=== PATIENT | female | born 1980 | race Caucasian/White ===

== ENCOUNTER → 2020-12-11 11:00 | Outpatient (BNVA) | payer BC, SELFPAY | PROVIDERS: Family Provider Nurse Practitioner Family; PCP Nurse Practitioner Family; Visit Provider Family Medicine | DX: F41.9 Anxiety disorder, unspecified (principal); R25.2 Cramp and spasm; L40.9 Psoriasis, unspecified; L72.11 Pilar cyst | CPT/HCPCS: 80053; 83735; 84443 ==

== ENCOUNTER → 2021-09-16 08:53 | Outpatient (BNVA) | payer BC, SELFPAY | PROVIDERS: Family Provider Nurse Practitioner Family; PCP Nurse Practitioner Family; Visit Provider Nurse Practitioner Family | DX: I10 Essential (primary) hypertension (principal); Z79.899 Other long term (current) drug therapy; G89.29 Other chronic pain; M25.50 Pain in unspecified joint; E55.9 Vitamin D deficiency, unspecified; Z13.6 Encounter for screening for cardiovascular disorders | CPT/HCPCS: 80053; 80061; 81003; 82306; 83036; 84443; 85025; 86160; 86162; 86200; 86235; 86255; 86376; 86431; 87077; 87086; 87184 ==

== ENCOUNTER → 2022-02-25 08:59 | Outpatient (BNVA) | payer MEDICAID, SELFPAY | PROVIDERS: Family Provider Nurse Practitioner Family; PCP Family Medicine; Visit Provider Anesthesiology Pain Medicine | DX: M50.90 Cervical disc disorder, unspecified, unspecified cervical region (principal); M54.12 Radiculopathy, cervical region; M25.512 Pain in left shoulder; Z98.1 Arthrodesis status; F17.210 Nicotine dependence, cigarettes, uncomplicated | CPT/HCPCS: 20553; 99213; 99214; J1030 ==

== ENCOUNTER 2022-05-14 13:01 | Outpatient (CLI) | payer MEDICAID, SELFPAY ==
--- NOTE | 2022-05-14 13:30 | CT_ITS ---
WS: [id number] CT CERVICAL SPINE TECHNIQUE: Noncontrast CT of the cervical spine with coronal and sagittal reformatted images. CLINICAL INFORMATION: M54.12 - Radiculopathy, cervical region COMPARISON: None. DLP: 566.[address] scans at [facility] use at least one of these dose optimization techniques: automated e xposure control; mA and/or kV adjustment per patient size (includes targeted exams where dose is matc hed to clinical indication); or iterative reconstruction. FINDINGS: Straightening of the normal cervical lordosis. Postoperative changes ACDF C5-C7 with interbody fusion graft. No evidence of hardware loosening. C2-C3: Normal. C3-C4: Normal. C4-C5: No significant disc bulging. Mild facet arthropathy. Spinal canal and foramen are patent. C5-C6: Postoperative changes ACDF. Foramen are patent. Spinal canal is patent. C6-C7: Postoperative changes ACDF. Spinal canal and foramen are patent. C7-T1: Postoperative changes interbody fusion C6-C7. Spinal canal and foramen are patent. Visualized posterior nasopharynx: Normal. Prevertebral soft tissues: Normal. CT/CT cervical spin wo con* [id number] IMPRESSION: 1. Straightening of the normal cervical lordosis. ACDF C5-C7. No evidence of h ardware loosening. 2. No significant central canal or foraminal stenosis 3. Mild facet arthropathy C4-C5 and C5-C6.
== END 2022-05-14 13:02 | disposition home or self-care (01) ==
LOC: RAD 13:02
PROVIDERS: Absent Provider Anesthesiology Pain Medicine; PCP Family Medicine; Visit Provider Family Medicine
DX: M54.12 Radiculopathy, cervical region (principal)
CPT/HCPCS: 72125

== ENCOUNTER → 2022-05-15 11:14 | Outpatient (BNVA) | payer MEDICAID, SELFPAY | PROVIDERS: PCP Family Medicine; Visit Provider Anesthesiology Pain Medicine | DX: M54.50 Low back pain, unspecified (principal); G89.29 Other chronic pain | CPT/HCPCS: 72110 ==

== ENCOUNTER → 2022-06-20 09:35 | Outpatient (BNVA) | payer MEDICAID, SELFPAY | PROVIDERS: PCP Family Medicine; Visit Provider Nurse Practitioner | DX: R10.9 Unspecified abdominal pain (principal); R07.81 Pleurodynia | CPT/HCPCS: 81000 ==

== ENCOUNTER → 2022-09-08 11:28 | Outpatient (BNVA) | payer MEDICAID, SELFPAY | PROVIDERS: PCP Family Medicine; Visit Provider Nurse Practitioner | DX: R10.2 Pelvic and perineal pain (principal) | CPT/HCPCS: 87070; 87077; 87184; 87205; 88175 ==

== ENCOUNTER → 2023-03-30 12:28 | Outpatient (BNVA) | payer MEDICARE, MEDICAID, SELFPAY | PROVIDERS: PCP Family Medicine; Visit Provider Family Medicine | DX: Z20.2 Contact with and (suspected) exposure to infections with a predominantly sexual mode of transmission (principal) | CPT/HCPCS: 80074; 87491; 87591; 87806 ==

== ENCOUNTER 2023-06-02 17:14 | Outpatient (CLI) | payer MEDICARE, MEDICAID, SELFPAY ==
--- NOTE | 2023-06-02 09:00 | MM_ITS ---
WS: [id number] BILATERAL 3D TOMOSYNTHESIS DIGITAL SCREENING MAMMOGRAPHY WITH CAD CLINICAL INFORMATION: SCREENING HISTORY: Screening mammogram. No current complaints. COMPARISON: None. TECHNIQUE: Bilateral CC and MLO views. FINDINGS: Scattered fibroglandular densities bilaterally. No suspicious focal mass, asymmetry, calcifications, or architectural distortion. No evidence of malignancy. Lucent centered calcifications RIGHT breast. IMPRESSION: MM/[place] [id number] BI-RADS: 2-Benign FOLLOW UP: 1 Year Follow-up Recommend return to annual screening mammography.
== END 2023-06-02 17:15 | disposition home or self-care (01) ==
LOC: MOBLMAM 17:18
PROVIDERS: PCP Family Medicine; Visit Provider Nurse Practitioner
DX: Z12.31 Encounter for screening mammogram for malignant neoplasm of breast (principal)
CPT/HCPCS: 77063; 77067

== ENCOUNTER → 2023-06-05 10:08 | Outpatient (BNVA) | payer MEDICARE, MEDICAID, SELFPAY | PROVIDERS: PCP Family Medicine; Visit Provider Nurse Practitioner | DX: R69 Illness, unspecified (principal); J06.9 Acute upper respiratory infection, unspecified | CPT/HCPCS: 87071; 87400; 87426; 87880 ==

== ENCOUNTER → 2023-06-11 10:53 | Outpatient (BNVA) | payer MEDICARE, MEDICAID, SELFPAY | PROVIDERS: PCP Family Medicine; Visit Provider Family Medicine | DX: R50.9 Fever, unspecified (principal); E66.9 Obesity, unspecified; Z71.6 Tobacco abuse counseling; M54.2 Cervicalgia; G89.29 Other chronic pain; M54.50 Low back pain, unspecified; M54.12 Radiculopathy, cervical region; M50.90 Cervical disc disorder, unspecified, unspecified cervical region; J18.9 Pneumonia, unspecified organism | CPT/HCPCS: 87400; 87426 ==

== ENCOUNTER → 2023-09-11 10:04 | Outpatient (BNVA) | payer MEDICARE, MEDICAID, SELFPAY | PROVIDERS: PCP Family Medicine; Visit Provider Nurse Practitioner Family | DX: K42.9 Umbilical hernia without obstruction or gangrene (principal); Z13.6 Encounter for screening for cardiovascular disorders; Z79.899 Other long term (current) drug therapy; E55.9 Vitamin D deficiency, unspecified; I10 Essential (primary) hypertension | CPT/HCPCS: 80053; 80061; 81003; 82306; 83036; 84443; 85025 ==

== ENCOUNTER → 2023-09-22 10:58 | Outpatient (BNVA) | payer MEDICARE, MEDICAID, SELFPAY | PROVIDERS: PCP Family Medicine; Referring Provider Nurse Practitioner Family; Visit Provider Surgery | DX: K42.9 Umbilical hernia without obstruction or gangrene (principal); K43.2 Incisional hernia without obstruction or gangrene | CPT/HCPCS: 99204 ==

== ENCOUNTER 2023-10-06 06:59 | Outpatient (CLI) | payer MEDICARE, MEDICAID, SELFPAY ==
[2023-10-06] MEDS: iohexol 350 mg/mL 500 mL Btl (per mL) PO (07:47)
--- NOTE | 2023-10-06 08:00 | CT_ITS ---
WS: [id number] CT ABDOMEN AND PELVIS WITH CONTRAST HISTORY: ventral incisional hernia TECHNIQUE: Imaging performed of the abdomen and pelvis with IV contrast. Single phase imaging of the abdomen. Coronal and sagittal reformats are submitted. All CT scans at [facility] use at [facility]i st one of these dose optimization techniques: automated exposure control; mA and/or kV adjustment per patient size (includes targeted exams where dose is matched to clinical indication); or iterative re construction. IV CONTRAST: Omnipaque 350; 100 mL IV. Oral contrast: Yes DLP: 787.30 mGy.cm COMPARISON: None available. Lower thorax: Lung bases are clear. Heart is normal size. No hiatal hernia. Liver/biliary system: Normal size with no intrahepatic dilatation. Gallbladder: Status post cholecystectomy. Pancreas: Normal size pancreas and pancreatic duct. No adjacent inflammation. Spleen: Normal size spleen. No mass or infarct. Adrenal glands: Normal. Right kidney: Normal. Left kidney: Normal. Aorta: Normal. Lymphadenopathy: None. Free fluid: None. GI tract: Unremarkable stomach. No small bowel obstruction. Prior appendectomy. Very mild constipatio n. Abdominal wall: Ventral abdominal wall hernia contains omentum only. Hernia orifice is 1.8 cm. Hernia is at the level of the umbilicus. No additional hernias are identified. Pelvis: No free fluid or adenopathy within the pelvis. Prior hysterectomy. Bones: Unremarkable. IMPRESSION: 1. Ventral abdominal wall hernia at the level of the umbilicus contains omentum only. Hernia orifice 1.8 cm. 2. Prior cholecystectomy, hysterectomy and appendectomy. 3. No GI tract obstruction.
[2023-10-06] MEDS: iohexol 350 mg/mL 500 mL Btl (per mL) IV (08:23)
== END 2023-10-06 07:00 | disposition home or self-care (01) ==
LOC: RAD 07:00
PROVIDERS: PCP Family Medicine; Visit Provider Surgery
DX: K43.2 Incisional hernia without obstruction or gangrene (principal); Z90.49 Acquired absence of other specified parts of digestive tract; Z90.710 Acquired absence of both cervix and uterus; Z90.89 Acquired absence of other organs
CPT/HCPCS: 74177; Q9967

== ENCOUNTER → 2023-10-13 10:29 | Outpatient (BNVA) | payer MEDICARE, MEDICAID, SELFPAY | PROVIDERS: PCP Family Medicine; Visit Provider Surgery | DX: Z09 Encounter for follow-up examination after completed treatment for conditions other than malignant neoplasm (principal) | CPT/HCPCS: 99213 ==

== ENCOUNTER 2023-11-02 05:40 | Day surgery (SDC) | payer MEDICARE, MEDICAID, SELFPAY ==
[2023-11-02] VITALS (17 sets, daily range): BP systolic 85–139; BP diastolic 59–89; PULSE 90–114; RESP 9–94; TEMP 36.3–36.9; O2SAT 91–97; BMI 36.7
--- NOTE | 2023-11-02 05:58 | P.HPUD_ITS ---
Surgery/Procedure H&P Update DATE OF PROCEDURE: November 02, 2023 DATE H&P PERFORMED: 10/13/23 H&P UPDATE INFORMATION: I have reviewed H&P completed within last 30 days, I have examined patient prior to procedure, No changes to prior documentation and H&P is in [facility] [place] EMR on date indicated PLANNED PROCEDURE: Operation Date: 11/02/23 07:00 Proposed Procedures p 17613 lap possible open ventral hernia repair with mesh K43.9(Not Applicable) - Atul Fernandez MD
[2023-11-02] MEDS: sodium chloride 0.9% 1,000 ML 30 ML IV (06:12)
--- NOTE | 2023-11-02 06:40 | W.PM.OPSFHP ---
Same Day Surgery H&P Indication for Procedure/HPI DATE OF PROCEDURE: November 02, 2023 CHIEF COMPLAINT/INDICATIONFOR SURGICAL PROCEDURE: umbilical hernia PREOP DIAGNOSIS: umbilical hernia PLANNED PROCEDURE: Operation Date: 11/02/23 07:00 Proposed Procedures p 50772 lap possible open ventral hernia repair with mesh K43.9(Not Applicable) - Atul Fernandez MD Medications/Allergies* Home Medications Medication Instructions Recorded Confirmed Type acetaminophen 325 mg capsule 325 mg PO QID PRN Pain 11/15/19 10/30/23 History (Tylenol) cholecalciferol (vitamin D3) 1,250 1,250 mcg PO .WEEKLY 11/06/21 10/30/23 History mcg (50,000 unit) capsule naloxone 4 mg/actuation nasal 1 ea intranasal PRN PRN overdose 08/04/22 10/30/23 History spray (Narcan) amlodipine 5 mg tablet 5 mg PO DAILY 10/30/23 10/30/23 History famotidine 40 mg tablet 40 mg PO BID 10/30/23 10/30/23 History lisinopril 20 mg tablet 20 mg PO BID 10/30/23 10/30/23 History naproxen 500 mg tablet 500 mg PO BID PRN Pain 10/30/23 10/30/23 History Allergies/Adverse Reactions Allergy/AdvReac Type Severity Reaction Status Date / Time azithromycin [From Zithromax] Allergy Intermediate rash Verified 10/30/23 09:46 celecoxib [From Celebrex] Allergy Intermediate sick Verified 10/30/23 09:46 dicyclomine [From Bentyl] Allergy Intermediate rash Verified 10/30/23 09:46 Sulfa (Sulfonamide Allergy ALGY-Difficulty Verified 10/30/23 09:46 Antibiotics) Breathing Current Medications: Generic Name Dose Route Start Last Admin Trade Name Freq PRN Reason Stop Dose Admin Sodium Chloride 1,000 mls @ 30 mls/hr 11/02/23 06:00 11/02/23 06:12 Sodium Chloride 0.9% IV 11/03/23 05:59 30 mls/hr .Q24H JUSTEN Administration Pertinent History/Comorbid Conditions* Medical History (Updated 10/29/23 @ 08:45 by SARAH Flores) Flu-like symptoms Upper respiratory infection Nausea Memory loss Umbilical hernia Constipation Hypertension screen Medication management Vitamin D deficiency Chronic joint pain Essential hypertension Rhus dermatitis GERD (gastroesophageal reflux disease) Surgical History (Updated 04/11/21 @ 15:21 by SARAH Flores) Status post cervical spinal fusion Social History Smoking and tobacco/nicotine status: current every day tobacco/nicotine user cigarettes Packs smoked per day: 0.5 Years cigarettes smoked: 30 Alcohol intake: never Substance/Drug Use: never Pertinent Exam Findings alert, oriented x 3, clear to auscultation bilaterally and regular rate & rhythm Recommendations Surgery/Procedure today Coding Level of Care Code Acute Code for Chg Fwd
--- NOTE | 2023-11-02 06:56 | ANES.PREANE2 ---
Pre-Anesthetic Assessment Height/Weight: Height 1.63 m Weight 97.069 kg Temp Pulse Resp BP Pulse Ox O2 Del Method 97.3 F L 92 18 139/89 97 Room Air 11/02/23 06:01 11/02/23 06:01 11/02/23 06:01 11/02/23 06:01 11/02/23 06:01 11/02/23 06:06 Preop Diagnosis: umbilical hernia Operation Date: 11/02/23 07:00 Proposed Procedures p 51566 lap possible open ventral hernia repair with mesh K43.9(Not Applicable) - Atul Fernandez MD Was Beta Aureliano taken within 24 hours: N/A Was Clonidine taken within 24 hours: N/A Last intake: Intake Last Liquid Date 11/01/23 Last Liquid Time 22:00 Last Solid Date 11/01/23 Last Solid Time 22:00 Social Tobacco 1/2 pack(s) per day smoked today Exam alert and oriented x 3 Airway Submandibular: within normal limits Cervical ROM: Other Mallampati: Class II Comments: Comments: Edentulous Pulmonary Chronic Obstructive Pulmonary Disease CV/HEM Hypertension GI Gastroesophageal Reflux Disease Metabolic Morbid Obesity [facility] [place] Lower Back Pain Neck pain, hx neck fusion Anesthetic Plan ASA status: 3 Anesthesia: General Medications/Allergies Home Medications Medication Instructions Recorded Confirmed Last Taken Type acetaminophen 325 mg capsule 325 mg PO QID PRN Pain 11/15/19 10/30/23 Unknown History (Tylenol) cholecalciferol (vitamin D3) 1,250 1,250 mcg PO .WEEKLY 11/06/21 10/30/23 10/19/23 History mcg (50,000 unit) capsule naloxone 4 mg/actuation nasal 1 ea intranasal PRN PRN overdose 08/04/22 10/30/23 Unknown History spray (Narcan) albuterol sulfate 90 mcg/actuation 2 puff inhalation Q6H PRN 06/05/23 10/30/23 11/02/23 03:40 Rx aerosol inhaler (Ventolin HFA) shortness of breath or wheezing #8.5 grams pregabalin 150 mg capsule 150 mg PO BID 90 days #180 caps 06/11/23 10/30/23 11/01/23 Rx polyethylene glycol 3350 17 4 g PO DAILY 30 days #238 grams 08/11/23 10/30/23 Unknown Rx gram/dose oral powder (Miralax) duloxetine 60 mg capsule,delayed 60 mg PO DAILY 30 days #30 caps 09/11/23 10/30/23 11/01/23 Rx release (Cymbalta) ondansetron HCl 4 mg tablet 4 mg PO Q8H PRN nausea and 10/09/23 10/30/23 Unknown Rx vomiting 5 days #20 tabs hydrocodone 7.5 mg-acetaminophen 1 tab PO Q12H PRN pain 30 days #60 10/11/23 10/30/23 11/02/23 03:40 Rx 325 mg tablet tabs amlodipine 5 mg tablet 5 mg PO DAILY 10/30/23 10/30/23 11/02/23 03:40 History famotidine 40 mg tablet 40 mg PO BID 10/30/23 10/30/23 11/01/23 History lisinopril 20 mg tablet 20 mg PO BID 10/30/23 10/30/23 11/01/23 History naproxen 500 mg tablet 500 mg PO BID PRN Pain 10/30/23 10/30/23 11/01/23 History Allergies Allergy/AdvReac Type Severity Reaction Status Date / Time azithromycin [From Zithromax] Allergy Intermediate rash Verified 10/30/23 09:46 celecoxib [From Celebrex] Allergy Intermediate sick Verified 10/30/23 09:46 dicyclomine [From Bentyl] Allergy Intermediate rash Verified 10/30/23 09:46 Sulfa (Sulfonamide Allergy ALGY-Difficulty Verified 10/30/23 09:46 Antibiotics) Breathing Current Medications Generic Name Dose Route Start Last Admin Trade Name Freq PRN Reason Stop Dose Admin Sodium Chloride 1,000 mls @ 30 mls/hr 11/02/23 06:00 11/02/23 06:12 Sodium Chloride 0.9% IV 11/03/23 05:59 30 mls/hr .Q24H JUSTEN Administration PFSH Anesthesia Medical History (Updated 10/29/23 @ 08:45 by SARAH Flores) Flu-like symptoms Upper respiratory infection Nausea Memory loss Umbilical hernia Constipation Hypertension screen Medication management Vitamin D deficiency Chronic joint pain Essential hypertension Rhus dermatitis GERD (gastroesophageal reflux disease) Surgical History Status post cervical spinal fusion Social History (Reviewed 10/13/23 @ 10:32 by Kimmy Alvares Smoking and tobacco/nicotine status: current every day tobacco/nicotine user cigarettes Packs smoked per day: 0.5 Years cigarettes smoked: 30 Alcohol intake: never Substance/Drug Use: never Data Anesthesia Cardiac Studies: No Data to Display
[2023-11-02] MEDS: ceFAZolin 2,000 MG in sodium chloride 0.9% (plus) 50 ML 100 MG IV (06:59)
[2023-11-02] MEDS: BUPivacaine 0.25% INJ 10 mL INJECTION (07:48)
[2023-11-02] MEDS: lidocaine-epi 1% PF 1:200,000 30 mL SDV 10 ML INJECTION (07:49)
[2023-11-02] MEDS: BUPivacaine 0.25% INJ 30 mL INJECTION (07:49)
--- NOTE | 2023-11-02 09:37 | PC.NURSE ---
0936 - oral airway out per pt - simple mask remains in place at 6L
[2023-11-02] MEDS: fentaNYL 50 mcg/mL INJ 2mL IVP (09:49)
--- NOTE | 2023-11-02 10:15 | PM.OP ---
Operative Report Date of procedure: November 02, 2023 Pre-op diagnosis: Ventral incisional hernia Post-op diagnosis: Ventral incisional hernia measuring 5 x 3 cm Post-op findings: Ventral incisional hernia measuring 5 x 3 cm, significant adhesions between the omentum and anterior abdominal wall, significant adhesions between the omentum and the falciform ligament Procedure done: Laparoscopic ventral incisional hernia repair with mesh, laparoscopic lysis of additions, laparoscopic guided transversus abdominis block Implants: 6 inches Ventralight mesh Specimens removed/disposition: None Surgeon: Atul Fernandez MD [employer] Education Teacher: SORAIDA OR STaff Estimated blood loss: 5 Complications: None Brief History: Right there is a 42-year-old female with a ventral incisional hernia who presented to my clinic for evaluation for repair. After discussion of all risk and benefits as discussed and documented in my preop note we decided to proceed Procedure: Patient was brought into the OR. She was placed in a supine position. General esthesia was given. The abdomen was prepped and draped in the usual sterile fashion and timeout was conducted. The abdomen was accessed Optiview technique via a 5 mm port in the left upper quadrant. Initial laparoscopy was done and no evidence of visceral injury was noted. Initial breast tissue evidence of significant adhesions of the omentum to the anterior abdominal wall, area of the hernia and falciform ligament. A 12 mm port was placed in the left flank under direct visualization and another 5 mm port was placed in the left lower quadrant under direct visualization. I then proceeded to do extensive adhesiolysis liberated the omentum from the anterior abdominal wall and omentum from the falciform ligament, I did this with sharp dissection and careful use of LigaSure. I then proceeded to circumferentially dissect the hernia contents, hernia was noted to contain fat, this fat was reduced into the abdomen revealing the hernia defect in the anterior abdominal wall. The defect measured 5 x 3 cm. I then proceeded to take down the falciform ligament in a distance of about 5 cm to allow for a good landing zone for the mesh. I then proceeded to close the defect with a running #2-0 PDS stratafix suture. Once the defect was closed I proceeded to insert in the abdomen a 6 x 6 inches Ventralight mesh, the positioning system was retrieved via a supraumbilical incision with a Kedar-Hetal suture passer and after the mesh was opposed to the anterior abdominal wall I proceeded to fix it in place using secure strap. The exoskeleton of the mesh was then removed and retrieved via the 12 mm port. The mesh was noted to be completely flat against the abdominal wall, no fat was noted between the mesh and abdominal wall. Hemostasis was verified. Transversus abdominis block was then done with laparoscopic visualization, I injected 20 mL of 0.25% Marcaine on the transversus abdominis plane on each side of the abdomen. This was done with laparoscopic guidance. I then proceeded to remove the 12 mm port and I closed these trocar site with a #0 Vicryl using a Kedar-Hetal suture passer. The left lower quadrant trocar was removed under direct visualization the left upper quadrant trocar was used to evacuate the pneumoperitoneum and subsequently removed. At the end of the procedure all counts were correct. The patient tolerated well the procedure and transferred to the PACU in stable condition.
[2023-11-02] MEDS: oxyCODONE 5 mg IR Tab/Cap PO (10:41)
--- NOTE | 2023-11-02 15:32 | ANE.PACU2 ---
Inpatient post-anesthesia follow up: Airway intact: Yes Vital signs: Temperature 97.7 F Pulse Rate 108 Respiratory Rate 20 Blood Pressure 116/65 Pulse Oximetry 94 Oxygen Delivery Me thod Room Air Oxygen Flow Rate 6 Fraction of Inspir ed Oxygen Hydration adequate: Yes Nausea and vomiting: No Pain level: 2 Mental status: Baseline
== END 2023-11-02 11:20 | disposition home or self-care (01) ==
PROVIDERS: PCP Nurse Practitioner Family; Visit Provider Surgery
PROC: 0WQF4ZZ Repair Abdominal Wall, Percutaneous Endoscopic Approach (ICD-10-PCS; CPT 49593; principal; 2023-11-02 07:00)
PROC: (CPT 49593; 2023-11-02 07:00)
DX: K43.2 Incisional hernia without obstruction or gangrene (principal); J44.9 Chronic obstructive pulmonary disease, unspecified; I10 Essential (primary) hypertension; K21.9 Gastro-esophageal reflux disease without esophagitis; E66.01 Morbid (severe) obesity due to excess calories; Z68.36 Body mass index [BMI] 36.0-36.9, adult; F17.210 Nicotine dependence, cigarettes, uncomplicated
CPT/HCPCS: 49593; J0690; J1100; J1170; J1200; J2250; J2371; J2405; J2704; J2710; J3010; J3490; J7030

== ENCOUNTER → 2023-11-17 08:49 | Outpatient (BNVA) | payer MEDICARE, MEDICAID, SELFPAY | PROVIDERS: PCP Nurse Practitioner Family; Visit Provider Surgery | DX: K43.9 Ventral hernia without obstruction or gangrene (principal) | CPT/HCPCS: 99024 ==

== ENCOUNTER → 2023-11-18 09:36 | Outpatient (BNVA) | payer MEDICARE, MEDICAID, SELFPAY | PROVIDERS: PCP Nurse Practitioner Family; Visit Provider Internal Medicine Rheumatology | DX: Z79.899 Other long term (current) drug therapy (principal); M19.90 Unspecified osteoarthritis, unspecified site; L40.0 Psoriasis vulgaris; Z71.85 Encounter for immunization safety counseling | CPT/HCPCS: 99204 ==

== ENCOUNTER → 2023-12-09 09:21 | Outpatient (BNVA) | payer MEDICARE, MEDICAID, SELFPAY | PROVIDERS: PCP Nurse Practitioner Family; Visit Provider Nurse Practitioner Family | DX: Z78.9 Other specified health status (principal); M54.2 Cervicalgia; G89.29 Other chronic pain | CPT/HCPCS: 87070; 87075; 87077; 87184; 87205 ==

== ENCOUNTER → 2024-01-01 08:38 | Outpatient (BNVA) | payer MEDICARE, MEDICAID, SELFPAY | PROVIDERS: PCP Nurse Practitioner Family; Visit Provider Internal Medicine Rheumatology | DX: Z79.899 Other long term (current) drug therapy (principal); M19.90 Unspecified osteoarthritis, unspecified site; Z11.1 Encounter for screening for respiratory tuberculosis; Z11.59 Encounter for screening for other viral diseases; L40.0 Psoriasis vulgaris; R10.9 Unspecified abdominal pain | CPT/HCPCS: 80076; 82565; 85025; 86140; 86480; 86704; 86803; 87340 ==

== ENCOUNTER → 2024-01-04 10:19 | Outpatient (BNVA) | payer MEDICARE, MEDICAID, SELFPAY | PROVIDERS: PCP Nurse Practitioner Family; Visit Provider Nurse Practitioner Family | DX: R10.9 Unspecified abdominal pain (principal); R19.7 Diarrhea, unspecified; L03.90 Cellulitis, unspecified | CPT/HCPCS: 74018 ==

== ENCOUNTER → 2024-01-07 08:24 | Outpatient (BNVA) | payer MEDICARE, MEDICAID, SELFPAY | PROVIDERS: PCP Nurse Practitioner Family; Visit Provider Nurse Practitioner Family | DX: R10.84 Generalized abdominal pain (principal); Z78.9 Other specified health status | CPT/HCPCS: 80053; 84145; 85025; 86140 ==

== ENCOUNTER 2024-01-13 08:56 | Outpatient (CLI) | payer MEDICARE, MEDICAID, SELFPAY ==
[2024-01-13] MEDS: iohexol 350 mg/mL 500 mL Btl (per mL) PO (09:35)
--- NOTE | 2024-01-13 10:30 | CTR_ITS ---
PROCEDURE INFORMATION: Exam: CT Abdomen And Pelvis With Contrast Exam date and time: 01/13/2024 10:40 AM Age: 43 years old Clinical indication: Prior surgery; Surgery date: 6+ months; Surgery type: Hernia, gb, appy, tubal, partial hyst; Patient HX: Abdominal pain/ post operative concern-hernia SX in October, not healing wound with n/v/d; Additional info: Abdominal pain/post operative concern, iv/oral TECHNIQUE: Imaging protocol: Computed tomography of the abdomen and pelvis with contrast. Radiation optimization: All CT scans at this facility use at least one of these dose optimization techniques: automated exposure control; mA and/or kV adjustment per patient size (includes targeted exams where dose is matched to clinical indication); or iterative reconstruction. Contrast material: OMNI 350; Contrast volume: 100 ml; Contrast route: INTRAVENOUS (IV); COMPARISON: CT abdomen pelvis w con* [id number] 10/06/2023 8:15 AM RADIATION DOSE METRICS: Total DLP (mGy-cm): 966.53 FINDINGS: Liver: The liver is diffusely decreased in density, compatible with hepatic steatosis. Gallbladder and bile ducts: Post cholecystectomy. Pancreas: The pancreas is unremarkable. Spleen: The spleen is unremarkable. Adrenal glands: The adrenal glands are unremarkable. Kidneys and ureters: No hydronephrosis or nephrolithiasis. Stomach and bowel: No evidence of bowel obstruction. There is average stool content. Since the rectal anal area is not well distended, soft tissue prominence in this region is difficult to evaluate and differentiate from stool. Possibility of a mass in this region may be difficult to exclude. Appendix: No evidence of appendicitis. Intraperitoneal space: Unremarkable. No free air. No significant fluid collection. Vasculature: Unremarkable. No abdominal aortic aneurysm. Lymph nodes: Mildly enlarged bilateral external iliac lymph nodes are seen, measuring 2.9 x 1.7 cm new on the right and 2.3 x 1.5 cm unchanged on the left. A 1.5 cm right lower quadrant mesenteric lymph node also seen, relatively unchanged. Urinary bladder: Unremarkable as visualized. Reproductive: There has been a hysterectomy. No adnexal cysts or masses are identified. Bones/joints: No acute osseous abnormality. Soft tissues: Soft tissue shows status post repair of ventral hernia. Expected postoperative edema/scar without obvious recurrence of hernia. No rim enhancing fluid collection to indicate abscess.0 CT/CT abdomen pelvis w con* [id number] IMPRESSION: 1. Ill-defined soft tissue prominence at the rectal anal region, inadequately evaluated based on CT. Correlation with physical exam may be of benefit to exclude potential mass, especially in light of mildly enlarged pelvic lymph nodes 2. Status post repair of ventral fat hernia without dehiscence, recurrence or evidence of hematoma/abscess. 3. Hepatic steatosis
[2024-01-13] MEDS: iohexol 350 mg/mL 500 mL Btl (per mL) IV (10:50)
== END 2024-01-13 08:57 | disposition home or self-care (01) ==
LOC: RAD 08:57
PROVIDERS: PCP Nurse Practitioner Family; Visit Provider Surgery
DX: R10.84 Generalized abdominal pain (principal); T81.9XXA Unspecified complication of procedure, initial encounter
CPT/HCPCS: 74177; 80053; 84145; 85025; 86140; 99024; Q9967

== ENCOUNTER → 2024-02-02 13:18 | Outpatient (BNVA) | payer MEDICARE, MEDICAID, SELFPAY | PROVIDERS: PCP Nurse Practitioner Family; Visit Provider Surgery | DX: Z98.890 Other specified postprocedural states (principal); K43.9 Ventral hernia without obstruction or gangrene | CPT/HCPCS: 99024 ==

== ENCOUNTER → 2024-02-16 08:26 | Outpatient (BNVA) | payer MEDICARE, MEDICAID, SELFPAY | PROVIDERS: PCP Nurse Practitioner Family; Visit Provider Nurse Practitioner Family | DX: Z79.899 Other long term (current) drug therapy (principal) | CPT/HCPCS: 71046; 80048; 85025; 85379; 87400 ==

== ENCOUNTER 2024-02-17 22:13 | Emergency (ER) | payer MEDICARE, MEDICAID, SELFPAY ==
[2024-02-17 22:18] VITALS: BP 176/109; PULSE 101; RESP 20; TEMP 36.8; O2SAT 97
--- NOTE | 2024-02-17 22:36 | ECG_ITS ---
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 Measurements Intervals [place] Rate: 88 P: 50 MN: 143 QRS: 44 QRSD: 77 T: 49 QT: 347 QTc: 422 Interpretive Statements SINUS RHYTHM No previous ECG available for comparison Electronically Signed On 02-19-2024 13:35:43 CDT by Manuel Mckenzie M.D. [id number]
--- NOTE | 2024-02-17 22:36 | CTR_ITS ---
PROCEDURE INFORMATION: Exam: CTA Chest With Contrast Exam date and time: 02/17/2024 11:13 PM Age: 43 years old Clinical indication: Other: Hypoxemia; Additional info: Hypoxemia, tachycardia TECHNIQUE: Imaging protocol: Computed tomographic angiography of the chest with contrast. Exam focused on the arteries. 3D rendering (Not supervised by radiologist): MIP and/or 3D reconstructed images were created by the technologist. Radiation optimization: All CT scans at this facility use at least one of these dose optimization techniques: automated exposure control; mA and/or kV adjustment per patient size (includes targeted exams where dose is matched to clinical indication); or iterative reconstruction. Contrast material: OMNI 350; Contrast volume: 60 ml; Contrast route: INTRAVENOUS (IV); COMPARISON: CR XR chest 2V* [id number] 02/16/2024 9:28 AM RADIATION DOSE METRICS: Total DLP (mGy-cm): 496.9 FINDINGS: Pulmonary arteries: Normal. No pulmonary emboli. Aorta: Unremarkable. No aortic aneurysm. No aortic dissection. Lungs: Unremarkable. No consolidation. No masses. Pleural spaces: Unremarkable. No pneumothorax. No pleural effusion. Heart: Unremarkable. No cardiomegaly. No pericardial effusion. Lymph nodes: Scattered subcentimeter short axis nonspecific mediastinal lymph nodes. Liver: Hepatic steatosis. Gallbladder and bile ducts: Cholecystectomy. Bones/joints: Unremarkable. No acute fracture. Soft tissues: Unremarkable. CT/CT angio chest PE protcl [id number] IMPRESSION: 1. Negative for pulmonary embolus. 2. Scattered subcentimeter short axis nonspecific mediastinal lymph nodes. 3. Hepatic steatosis. 4. Cholecystectomy.
--- NOTE | 2024-02-17 23:00 | W.ED.SOB ---
HPI - SOB/Dyspnea General: Chief Complaint: Shortness of Breath/Dyspnea Stated Complaint: SOB, Back pain Time Seen by Provider: 02/17/24 22:23 History of Present Illness: HPI Narrative: 43-year-old female with a history of obesity, tobacco dependence, hypertension who presents to the emergency room with chest pain, cough and shortness of breath. She complains of some posterior right chest wall pain. This hurts with breathing. She recently started taking some estrogen. She smokes and she is overweight which put her at risk for PE. A D-dimer was drawn and lab by her PCP and was 0.76 and so she was told to come to the emergency room for evaluation. She not had any lower extremity swelling no past calf pain. She is mildly tachycardic at 101 on presentation. She is hypertensive. She is not hypoxemic. Review of Systems Narrative: Constitutional symptoms: Negative except as documented in HPI. Skin symptoms: Negative except as documented in HPI. Eye symptoms: Negative except as documented in HPI. ENMT symptoms: Negative except as documented in HPI. Respiratory symptoms: Negative except as documented in HPI. Cardiovascular symptoms: Negative except as documented in HPI. Gastrointestinal symptoms: Negative except as documented in HPI. Genitourinary symptoms: Negative except as documented in HPI. Musculoskeletal symptoms: Negative except as documented in HPI. Neurologic symptoms: Negative except as documented in HPI. Psychiatric symptoms: Negative except as documented in HPI. Endocrine symptoms: Negative except as documented in HPI. [facility] PFSH: Medical History (Updated 02/18/24 @ 01:26 by Frieda Turner MD) Ventral incisional hernia PNA (pneumonia) Allergic reaction Abdominal wall hernia Cervical disc disease Cellulitis Diarrhea Abdominal pain Presence of surgical incision Immunization counseling High risk medication use Plaque psoriasis history? Inflammatory arthritis Encounter for other specified special examinations Joint pain Anxiety and depression Neuropathy Flu-like symptoms Upper respiratory infection Nausea Memory loss Umbilical hernia Constipation Hypertension screen Medication management Vitamin D deficiency Chronic joint pain Essential hypertension Rhus dermatitis GERD (gastroesophageal reflux disease) Surgical History (Updated 02/16/24 @ 08:55 by SARAH Atkinson) Hx of hysterectomy kept ovaries History of esophagogastroduodenoscopy (EGD) Hx of colonoscopy 10 yrs ago Hx of tubal ligation Hx laparoscopic cholecystectomy Hx of exploratory laparotomy Hx of appendectomy Hx of hernia repair 11/02/23 Laparoscopic ventral incisional hernia repair with mesh, laparoscopic lysis of additions, laparoscopic guided transversus abdominis block- Dr Fernandez Status post cervical spinal fusion Social History Smoking and tobacco/nicotine status: current every day tobacco/nicotine user cigarettes Packs smoked per day: 0.5 Years cigarettes smoked: 30 Alcohol intake: never Substance/Drug Use: never Physical Exam Narrative: EXAM NARRATIVE: General: Alert, no acute distress. Skin: Warm, dry. Head: Normocephalic, atraumatic. Neck: Supple, trachea midline. Eye: Extraocular movements are intact. Ears, nose, mouth and throat: mucosa moist. Cardiovascular: Regular, Normal peripheral perfusion. Respiratory: Lungs are clear to auscultation, respirations are non-labored, breath sounds are equal, Symmetrical chest wall expansion. Gastrointestinal: Soft, Nontender, Non distended, Normal bowel sounds. Musculoskeletal: Normal ROM, no deformity. Neurological: Alert and oriented, No focal neurological deficit observed. Psychiatric: Cooperative, appropriate mood & affect. Course Vital Signs: Vital signs: Vital Signs Temperature 98.3 F 02/17/24 22:18 Pulse Rate 80 02/18/24 00:31 Respiratory Rate 20 H 02/17/24 22:18 Blood Pressure 176/109 02/17/24 22:18 Pulse Oximetry 95 02/18/24 00:31 Oxygen Delivery Me thod Room Air 02/18/24 00:31 MDM - SOB/Dyspnea Medical Decision Making Differential diagnosis for patient with chest pain includes but is not limited to and based on the above HPI, review of systems and physical exam: Pneumonia. unstable angina. angina. Acute coronary syndrome / OH. Pulmonary embolism. Costochondritis / musculoskeletal. Pleurisy. Pericarditis. Esophageal spasm. Pancreatis. Cholecystitis. Orders placed to evaluate differential diagnosis based on the above differential, HPI and physical exam EK. Rate 88. Normal sinus rhythm, No ST-T changes, no ectopy, normal NC & QRS intervals, This was reviewed and interpreted by myself the ER physician at 2235 Lab Review: Laboratory results were reviewed and interpreted by myself the emergency room physician. Lab work is fairly unremarkable. White count is 8. Hemoglobin is 14.5. Renal function is normal with a BUN/creatinine of 15 and 0.7. CTA of the chest with PE protocol: Negative for pulmonary embolus. There are some nonspecific mediastinal lymph nodes. Some hepatic steatosis. She has had a history of a cholecystectomy. This was reviewed and interpreted by myself the emergency room physician. I also reviewed the radiology report. I reviewed the patient's medical record. Reexamination: Patient remained stable. No increased work of breathing. No altered mental status. No focal motor deficits. Assessment and plan: Bronchitis Tobacco dependence Pleuritic chest pain ?IV Toradol, IV Decadron in the emergency room. -Breathing treatment - Discharged home - Discussed findings and plan with patient. Answered any questions. - All laboratory values were reviewed and interpreted personally by myself, the ER physician - All imaging was reviewed and interpreted personally by myself, the ER physician. - Evaluation and treatment of this problem were appropriate in the emergency setting Lab Data 02/17/24 22:57 02/17/24 22:57 Labs/Radiology: Radiology Impressions Chest CTA 02/17/24 22:36 IMPRESSION: 1. Negative for pulmonary embolus. 2. Scattered subcentimeter short axis nonspecific mediastinal lymph nodes. 3. Hepatic steatosis. 4. Cholecystectomy. Laboratory Results WBC 8.29 10^3/uL (3.29-11.43) 02/17/24 22:57 RBC 4.88 10^6/uL (3.85-5.65) 02/17/24 22:57 Hgb 14.50 g/dL (11.27-16.99) 02/17/24 22:57 Hct 43.4 % (36-47) 02/17/24 22:57 MCV 88.9 fl (85-98) 02/17/24 22:57 MCH 29.7 pg (27-33) 02/17/24 22:57 MCHC 33.4 g/dL (30-55) 02/17/24 22:57 RDW 13.1 % (12.1-15.1) 02/17/24 22:57 Plt Count 285 10^3/cmm (157-399) 02/17/24 22:57 MPV 9.8 fL (7.4-10.4) 02/17/24 22:57 Neut % (Auto) 51.3 % 02/17/24 22:57 Lymph % (Auto) 36.3 % 02/17/24 22:57 [place] % (Auto) 8.6 % 02/17/24 22:57 Eos % (Auto) 2.8 % 02/17/24 22:57 Baso % (Auto) 0.6 % 02/17/24 22:57 Neut # (Auto) 4.26 10^3/uL (1.8-7.7) 02/17/24 22:57 Lymph # (Auto) 3.0 10^3/uL (0.8-4.8) 02/17/24 22:57 Fill[place] # (Auto) 0.7 10^3/uL (0.2-0.9) 02/17/24 22:57 Eos # (Auto) 0.2 10^3/uL (0.0-0.8) 02/17/24 22:57 Baso # (Auto) 0.1 10^3/uL (0.0-0.1) 02/17/24 22:57 Nucleated RBC % (auto) 0 % 02/17/24 22:57 Nucleated RBCs # 0.0 /100WBC 02/17/24 22:57 Sodium 141 mmol/L (136-145) 02/17/24 22:57 Potassium 4.0 mmol/L (3.5-5.1) 02/17/24 22:57 Chloride 105 mmol/L (98-107) 02/17/24 22:57 Carbon Dioxide 24 mmol/L (22-29) 02/17/24 22:57 Anion Gap 16.0 (5-19) 02/17/24 22:57 BUN 15 mg/dL (6-20) 02/17/24 22:57 Creatinine 0.7 mg/dL (0.5-0.9) 02/17/24 22:57 GFR Calculation 90.9 mL/min (90-130) 02/17/24 22:57 Glucose 158 mg/dL (65-115) H 02/17/24 22:57 Calculated Osmolality 296 mOsm/kg (285-295) H 02/17/24 22:57 Lactic Acid 1.6 mmol/L (0.5-2.2) 02/17/24 22:57 Calcium 8.8 mg/dL (8.5-10.5) 02/17/24 22:57 Total Bilirubin 0.2 mg/dL (0.15-1.2) 02/17/24 22:57 AST 36 U/L (0-32) H 02/17/24 22:57 ALT 64 U/L (0-33) H 02/17/24 22:57 Alkaline Phosphatase 101 U/L (35-105) 02/17/24 22:57 Troponin T Baseline 11 ng/L (0-10) H 02/17/24 22:57 Troponin T 120 Minute 7.87 ng/L (0-10) 02/18/24 00:58 Delta Troponin T -3.13 ABS# (0-10) L 02/18/24 00:58 C-Reactive Protein 6.8 mg/L (0.0-4.9) H 02/17/24 22:57 Total Protein 6.3 g/dL (6.6-8.7) L 02/17/24 22:57 Albumin 3.8 g/dL (3.5-5.2) 02/17/24 22:57 Globulin 2.5 g/dL (1.3-4.6) 02/17/24 22:57 All radiology interpretation(s) finalized by discharge Discharge Plan Discharge Patient Disposition: Home Clinical Impression: Pleuritic chest pain, Bronchitis, Tobacco dependence Condition: Stable Prescriptions: New prednisone 20 mg tablet 60 mg PO DAILY 5 Days Qty: 15 0RF levofloxacin 750 mg tablet 750 mg PO DAILY 7 Days Qty: 7 0RF albuterol sulfate 90 mcg/actuation HFA aerosol inhaler 2 inh inhalation Q4H PRN (Reason: shortness of breath or wheezing) Qty: 6.7 0RF Rx Instructions: Please provide patient with a spacer No Action cholecalciferol (vitamin D3) 1,250 mcg (50,000 unit) capsule 1,250 mcg PO .WEEKLY albuterol sulfate [Ventolin HFA] 90 mcg/actuation HFA aerosol inhaler 2 puff inhalation Q6H PRN (Reason: shortness of breath or wheezing) Qty: 8.5 0RF mometasone 0.1 % cream 1 applic topical DAILY 7 Days Qty: 15 0RF hydrocodone-acetaminophen 7.5-325 mg tablet 1 tab PO BID PRN (Reason: pain) 30 Days Qty: 60 0RF omeprazole 40 mg capsule,delayed release(DR/EC) See Rx Instructions PO DAILY Qty: 30 5RF Rx Instructions: take 1 capsule in AM 30 minutes before breakfast orally daily; duloxetine [Cymbalta] 60 mg capsule,delayed release(DR/EC) 60 mg PO DAILY 30 Days Qty: 30 2RF polyethylene glycol 3350 [Miralax] 17 gram/dose powder 4 g PO DAILY 30 Days Qty: 238 0RF benzonatate 100 mg capsule 100 mg PO TID PRN (Reason: cough) Qty: 20 0RF doxycycline hyclate 100 mg tablet 100 mg PO BID Qty: 14 0RF amlodipine 5 mg tablet See Rx Instructions .ROUTE .COMPLEX Qty: 90 1RF Dose Instruction: TAKE 1 TABLET BY MOUTH DAILY Rx Instructions: TAKE 1 TABLET BY MOUTH DAILY leflunomide 10 mg tablet 10 mg PO DAILY Qty: 30 5RF lisinopril 20 mg tablet See Rx Instructions .ROUTE .COMPLEX Qty: 60 2RF Dose Instruction: TAKE 1 TABLET BY MOUTH TWICE DAILY Rx Instructions: TAKE 1 TABLET BY MOUTH TWICE DAILY docusate sodium 100 mg capsule 100 mg PO BID Qty: 14 0RF Discharge Orders: Discharge ED (Routine); Ordered 02/18/24 Ordered By: Frieda Turner Referrals: NORM Pete, [facility] [Primary Care Provider] - 4-7 days Discharge Diet: Usual diet Discharge Activity: Increase activity as tolerated Patient Instructions: How to Stop Smoking (ED), Acute Bronchitis (ED) Activity Restrictions/Additional Instructions: Thank you for choosing [facility] for your healthcare needs today. Please realize this is an emergency room and that we are providing you with a medical screening exam and this may not be complete and all inclusive of all the testing and or work up that you may need to determine your ailment or severity of your illness. You have been screened and evaluated and felt safe for discharge. Health conditions do change or evolve sometimes and as such it is important that you follow up with your Primary Doctor to be re checked, 3-5 days is a general good time frame for follow up. You are always welcome to return to the ED for re assessment if your symptoms are worsening or you have new concerns Coding Level of Care Code ED Ultrasound Technol for Paul Bryant
[2024-02-17 23:02] LABS: Basophils # 0.1 10^3/uL (0.0-0.1); Basophils % 0.6 %; Eosinophils # 0.2 10^3/uL (0.0-0.8); Eosinophils % 2.8 %; Hematocrit 43.4 % (36-47); Lymphocytes % 36.3 %; Mean Corpuscular HGB Conc 33.4 g/dL (30-55); Mean Corpuscular Hemoglobin 29.7 pg (27-33); Mean Corpuscular Volume 88.9 fl (85-98); Mean Platelet Volume 9.8 fL (7.4-10.4); Monocytes # 0.7 10^3/uL (0.2-0.9); Monocytes % 8.6 %; Neutrophils # 4.26 10^3/uL (1.8-7.7); Neutrophils % 51.3 %; Nucleated Red Blood Cells % 0 %; Platelet Count 285 10^3/cmm (157-399); Red Blood Count 4.88 10^6/uL (3.85-5.65); Red Cell Distribution Width 13.1 % (12.1-15.1); White Blood Count 8.29 10^3/uL (3.29-11.43)
[2024-02-17 23:23] LABS: Troponin(5th) Baseline 11 ng/L (0-10)
[2024-02-17 23:24] LABS: Alanine Aminotransferase 64 U/L (0-33); Albumin Level 3.8 g/dL (3.5-5.2); Alkaline Phosphatase 101 U/L (35-105); Aspartate Amino Transferase 36 U/L (0-32); Blood Urea Nitrogen 15 mg/dL (6-20); C Reactive Protein 6.8 mg/L (0.0-4.9); Calcium 8.8 mg/dL (8.5-10.5); Carbon Dioxide 24 mmol/L (22-29); Chloride 105 mmol/L (98-107); Creatinine Clr Calc Pharmacy 118.6445; Globulin 2.5 g/dL (1.3-4.6); Glomerular Filtration Rate 90.9 mL/min (90-130); Glucose 158 mg/dL (65-115); Osmolality Calculated 296 mOsm/kg (285-295); Sodium 141 mmol/L (136-145); Total Bilirubin 0.2 mg/dL (0.15-1.2); Total Protein 6.3 g/dL (6.6-8.7)
[2024-02-17] MEDS: iohexol 350 mg/mL 500 mL Btl (per mL) IV (23:24)
[2024-02-17 23:25] LABS: Lactic Sepsis W/Reflex 1.6 mmol/L (0.5-2.2)
[2024-02-17 23:31] VITALS: PULSE 83; O2SAT 97
[2024-02-18 00:31] VITALS: PULSE 80; O2SAT 95
--- NOTE | 2024-02-18 01:03 | ECG_ITS ---
[facility] Test Date: 2024-02-18 Pat Name: Kaylan James Department: Room: Gender: Female Assistant To The Dean: : 1980 Requested By: Frieda Stout Order Number: [id number] Cornelius MD: Manuel Mckenzie M.D. Measurements Intervals Lindsay Rate: 88 P: 42 DE: 144 QRS: 40 QRSD: 79 T: 45 QT: 346 QTc: 419 Interpretive Statements SINUS RHYTHM No previous ECG available for comparison Electronically Signed On 02-19-2024 13:58:03 CDT by Manuel Mckenzie M.D. [id number]
[2024-02-18 01:19] LABS: Troponin 5 2HR 7.87 ng/L (0-10)
[2024-02-18 01:22] LABS: Troponin 5 2HR Delta -3.13 ABS# (0-10)
[2024-02-18] MEDS: ketorolac 30 mg/mL INJ IVP (01:40)
[2024-02-18] MEDS: dexamethasone 10 mg/mL INJ IVP (01:40)
[2024-02-18 02:41] VITALS: BP 134/70; PULSE 93; O2SAT 93
== END 2024-02-18 02:16 | disposition home or self-care (01) ==
PROVIDERS: Emergency Provider Emergency Medicine; PCP Nurse Practitioner Family
DX: R07.81 Pleurodynia (principal); J40 Bronchitis, not specified as acute or chronic; F17.210 Nicotine dependence, cigarettes, uncomplicated; I10 Essential (primary) hypertension
CPT/HCPCS: 36415; 71275; 80053; 83605; 84484; 85025; 86140; 93005; 96374; 96375; 99285; J1100; J1885; Q9967

== ENCOUNTER → 2024-04-19 09:25 | Outpatient (BNVA) | payer MEDICARE, MEDICAID, SELFPAY | PROVIDERS: PCP Nurse Practitioner Family; Visit Provider Internal Medicine Rheumatology | DX: L40.0 Psoriasis vulgaris (principal); Z79.899 Other long term (current) drug therapy; Z71.85 Encounter for immunization safety counseling; L40.50 Arthropathic psoriasis, unspecified | CPT/HCPCS: 99214 ==

== ENCOUNTER 2024-05-12 06:00 | Outpatient (RCR) | payer MEDICARE, MEDICAID, SELFPAY | END 2024-05-30 23:59 | disposition home or self-care (01) | LOC: WPT 06:00 | PROVIDERS: PCP Nurse Practitioner Family; Visit Provider Nurse Practitioner Family | DX: M51.36 Other intervertebral disc degeneration, lumbar region (principal) | CPT/HCPCS: 97162 ==

== ENCOUNTER 2024-05-13 06:23 | Outpatient (CLI) | payer MEDICARE, MEDICAID, SELFPAY ==
--- NOTE | 2024-05-13 06:45 | US_ITS ---
WS: [id number] RIGHT UPPER QUADRANT ULTRASOUND HISTORY: R79.89 - Other specified abnormal findings of blood chemi... COMPARISON: 10/06/2023 Liver: 22.1 cm in length. Markedly enlarged liver with hepatic steatosis. The entire liver is poorly visualized due to attenuation. No mass identified. Portal triads are not visualized. No bile duct dil atation. Portal Vein: Poorly visualized. Gallbladder: Prior cholecystectomy. CBD: 0.5 cm Pancreas: Not visualized. Right kidney: 12.3 cm in length. Normal size and echogenicity. No hydronephrosis or mass. Aorta and IVC: Unremarkable abdominal aorta and IVC. No ascites. US/US liver [id number] IMPRESSION: 1. Prior cholecystectomy. 2. Markedly enlarged liver with hepatic steatosis. The entire liver not well v isualized. 3. No bile duct dilatation.
--- NOTE | 2024-05-13 07:41 | XR_ITS ---
WS: [id number] XR lumbar spine 6V w f/e [id number] REASON FOR EXAM: M51.36 - Other intervertebral disc degeneration, lumbar r... FINDINGS: Hypoplastic 12th ribs and partial sacralization of the last vertebral body without ribs. First verteb ral body without ribs L1, less vertebral body without ribs L5. Mild rotatory levoscoliosis. Straightening of the normal lordosis. No significant vertebral body abnormality. Mild narrowing of the disc spaces L3-S1. No spondylolysis or significant spondylolisthesis. Lumbar spine appears stable compared to 05/15/2022. XR/XR lumbar spine 6V w f/e [id number] IMPRESSION: Stable lumbar spine with mild changes of degenerative spondylosis.
== END 2024-05-13 06:24 | disposition home or self-care (01) ==
PROVIDERS: PCP Nurse Practitioner Family; Visit Provider Internal Medicine Rheumatology
DX: R16.0 Hepatomegaly, not elsewhere classified (principal); R79.89 Other specified abnormal findings of blood chemistry; M51.36 Other intervertebral disc degeneration, lumbar region; K76.0 Fatty (change of) liver, not elsewhere classified; Z90.49 Acquired absence of other specified parts of digestive tract
CPT/HCPCS: 36415; 72114; 76705; 80076; 82565; 85025; 85651; 86140

== ENCOUNTER 2024-05-31 06:00 | Outpatient (RCR) | payer MEDICARE, MEDICAID, SELFPAY | END 2024-06-30 23:59 | disposition home or self-care (01) | LOC: WPT 06:00 | PROVIDERS: PCP Nurse Practitioner Family; Visit Provider Nurse Practitioner Family | DX: M51.369 Other intervertebral disc degeneration, lumbar region without mention of lumbar back pain or lower extremity pain (principal) | CPT/HCPCS: 97110 ==

== ENCOUNTER 2024-06-07 09:15 | Outpatient (CLI) | payer MEDICARE, MEDICAID, SELFPAY ==
--- NOTE | 2024-06-07 09:30 | USCV_ITS ---
Kaylan James Age: 43 Gender: F : 1980 Exam Date: 06/07/2024 09:34 Ordering Phys: NORM Pete APRN Technologist: NEVIN Exam Location: [facility] [place] Indication: ENLARGED LIVER, EVAL FOR RIGHT SIDED HEART FAILURE BP: 185 / 90 HR: 93 Rhythm: Sinus Technical Quality: Suboptimal MEASUREMENTS (Male / Female) Normal Values 2D ECHO LV Diastolic Diameter PLAX 4.1 cm 4.2 - 5.9 / 3.9 - 5.3 cm IVS Diastolic Thickness 1.3 cm 0.6 - 1.0 / 0.6 - 0.9 cm IVS Systolic Thickness 1.9 cm LVPW Diastolic Thickness 2.3 cm 0.6 - 1.0 / 0.6 - 0.9 cm LVPW Systolic Thickness 2.4 cm LVOT Diameter 2.0 cm LV Ejection Fraction 2D Teich 60.2 % LV Ejection Fraction MOD 4C 51.8 % LV Ejection Fraction MOD 2C 58.5 % LV Ejection Fraction 2C AL 60.5 % LA Diameter 2.8 cm RA Systolic Volume 4C AL 24.8 ml RA Systolic Volume 4C MOD 23.2 ml LA Sys Volume AL 32.5 cm cubed LA Sys Volume Index AL 14.5 cm cubed/m squared Aorta at Sinotubular Diameter 2.6 cm M-MODE LA Ao Ratio MM 0.7 AV Cusp Separation MM 1.8 cm DOPPLER AV Peak Velocity 121.0 cm/s LVOT Peak Velocity 94.0 cm/s AV Area Cont Eq vti 2.8 cm squared AV Area Cont Eq pk 2.6 cm squared MV Peak Velocity 78.0 cm/s MV Area PHT 3.7 cm squared Mitral E to A Ratio 1.0 TR Peak Velocity 125.0 cm/s TR Peak Gradient 6.3 mmHg TR Mean Velocity 110.0 cm/s TR Mean Gradient 4.9 mmHg TR Velocity Time Integral 35.8 cm TV Peak E Velocity 66.0 cm/s Right Atrial Pressure 3.0 mmHg Pulmonary Artery Systolic Pressu 9.3 mmHg PV Peak Velocity 90.0 cm/s RV Ejection Time 0.3 s FINDINGS Left Ventricle . normal left ventricular size, systolic function and wall thickness, with no regional wall motion abnormalities. Left ventricular ejection fraction is estimated at 60 %. Normal left ventricular filling pressure. Right Ventricle The right ventricle is normal in size and function. Right Atrium The right atrium is normal in size. Left Atrium The left atrium is normal in size. Mitral Valve Structurally normal mitral valve without significant stenosis or prolapse. There is no mitral regurgitation. Aortic Valve Structurally normal aortic valve without significant sclerosis or stenosis. There is no aortic regurgitation. Tricuspid Valve Structurally normal tricuspid valve without significant stenosis or regurgitation. Pulmonary artery systolic pressure is normal. Pulmonic Valve Structurally normal pulmonic valve without significant stenosis. There is no pulmonic regurgitation. Pericardium Normal pericardium without effusion. Aorta Normal ascending aorta dimension. IVC The inferior vena cava appears normal. CONCLUSIONS CONCLUSIONS: 1. Normal left ventricular size, systolic function and wall thickness, with no regional wall motion abnormalities. Left ventricular ejection fraction is estimated at 60%. Normal left ventricular wall thickness. Normal diastolic filling pattern. 2. No significant chamber abnormalities. 3. No sigificant valve abnormalities. 4. There is no pericardial effusion. 5. There are no intracardiac masses. 6. Pulmonary artery systolic pressure is within normal limits. 7. Right atrial pressure is around[5 mm of mercury. 8. There are no prior echocardiogram studies to compare. Brigida Mello MD (Electronically Signed) Final Date: 07 June 2024 17:24 S
== END 2024-06-07 09:16 | disposition home or self-care (01) ==
PROVIDERS: PCP Nurse Practitioner Family; Visit Provider Nurse Practitioner Family
DX: R16.0 Hepatomegaly, not elsewhere classified (principal); I50.810 Right heart failure, unspecified
CPT/HCPCS: 93306

== ENCOUNTER → 2024-06-21 09:48 | Outpatient (BNVA) | payer MEDICARE, MEDICAID, SELFPAY | PROVIDERS: PCP Nurse Practitioner Family; Visit Provider Nurse Practitioner Family | DX: R05.9 Cough, unspecified (principal) | CPT/HCPCS: 87426 ==

== ENCOUNTER 2024-06-22 09:25 | Outpatient (CLI) | payer MEDICARE, MEDICAID, SELFPAY ==
--- NOTE | 2024-06-22 09:30 | MR_ITS ---
WS: [id number] MRI LUMBAR SPINE NONCONTRAST HISTORY: Bilateral hip and lower extremity pain. COMPARISON: 05/01/2016 TECHNIQUE: Sagittal and axial multisequence imaging is submitted. Prior cervical fusion. Normal lumbar alignment with no compression fractures or marrow edema. Mild disc base narrowing and desiccation at L4-5. L2 hemangioma. Conus terminates normally at L1-2 disc level. L1-L2: Normal. L2-L3: Bilateral mild facet arthritis. No stenosis. L3-L4: Mild annular disc bulging with proximal bilateral small foraminal disc protrusions. Very sligh t contact along the LEFT lateral thecal sac with mild encroachment on the subarticular recesses. No h igh-grade stenosis. L4-L5: Mild annular disc bulge with a LEFT foraminal disc protrusion. Small central disc protrusion w ith fissure also. Mild central, bilateral subarticular recess and LEFT foraminal stenosis. Moderate L EFT foraminal stenosis with disc contacting the exiting LEFT L4 nerve root. L5-S1: Mild annular disc bulging with no stenosis. Paravertebral soft tissues are normal. MR/MR lumbar spine wo con* [id number] IMPRESSION: 1. Degenerative disc disease at L4-5. 2. L4-5: LEFT foraminal disc protrusion resulting in moderate LEFT foraminal s tenosis with disc contacting the exiting LEFT L4 nerve root. 3. L4-5: Annular disc bulging with a central disc protrusion. Mild central, bi lateral subarticular recess and moderate LEFT foraminal stenosis as described a scot. 4. L3-4: Small proximal foraminal disc protrusions. Mild contact on the LEFT l ateral thecal sac with mild encroachment upon the subarticular recesses. No hig h-grade stenosis.
== END 2024-06-22 09:26 | disposition home or self-care (01) ==
LOC: RAD 09:25
PROVIDERS: PCP Nurse Practitioner Family; Visit Provider Nurse Practitioner Family
DX: M54.16 Radiculopathy, lumbar region (principal); M51.361 Other intervertebral disc degeneration, lumbar region with lower extremity pain only; M47.896 Other spondylosis, lumbar region; M99.63 Osseous and subluxation stenosis of intervertebral foramina of lumbar region; M50.20 Other cervical disc displacement, unspecified cervical region
CPT/HCPCS: 72148

== ENCOUNTER → 2024-07-05 08:49 | Outpatient (BNVA) | payer MEDICARE, MEDICAID, SELFPAY | PROVIDERS: PCP Nurse Practitioner Family; Referring Provider Nurse Practitioner Family; Visit Provider Surgery | DX: R10.9 Unspecified abdominal pain (principal); K52.9 Noninfective gastroenteritis and colitis, unspecified; K92.1 Melena | CPT/HCPCS: 99214 ==

== ENCOUNTER → 2024-07-12 10:32 | Outpatient (BNVA) | payer MEDICARE, MEDICAID, SELFPAY | PROVIDERS: PCP Nurse Practitioner Family; Visit Provider Orthopaedic Surgery | DX: M54.9 Dorsalgia, unspecified (principal); M48.062 Spinal stenosis, lumbar region with neurogenic claudication | CPT/HCPCS: 72110; 99204 ==

== ENCOUNTER 2024-08-04 07:43 | Day surgery (SDC) | payer MEDICARE, MEDICAID, SELFPAY ==
[2024-08-04 08:11] VITALS: BMI 39.4
--- NOTE | 2024-08-04 08:11 | W.PM.OPSFHP ---
Same Day Surgery H&P Indication for Procedure/HPI DATE OF PROCEDURE: August 04, 2024 CHIEF COMPLAINT/INDICATIONFOR SURGICAL PROCEDURE: abdominal pain and reflux PREOP DIAGNOSIS: abdominal pain and reflux PLANNED PROCEDURE: Operation Date: 08/04/24 09:15 Proposed Procedures p Colonoscopy - 89703, G0105, 77435, K92.1, R10.9(Not Applicable) - Atul Fernandez MD s EGD(Not Applicable) - Atul Fernandez MD Medications/Allergies* Home Medications Medication Instructions Recorded Confirmed Type amlodipine 5 mg tablet 5 mg PO DAILY 08/02/24 08/04/24 History baclofen 10 mg tablet 10 mg PO DAILY 08/02/24 08/04/24 History lisinopril 20 mg tablet 20 mg PO BID 08/02/24 08/04/24 History omeprazole 40 mg capsule,delayed 40 mg PO DAILY 08/02/24 08/04/24 History release Allergies/Adverse Reactions Allergy/AdvReac Type Severity Reaction Status Date / Time azithromycin [From Zithromax] Allergy Intermediate rash Verified 07/12/24 10:46 celecoxib [From Celebrex] Allergy Intermediate sick Verified 07/12/24 10:46 dicyclomine [From Bentyl] Allergy Intermediate rash Verified 07/12/24 10:46 2-octyl cyanoacrylate Allergy ALGY-Rash Verified 07/12/24 10:46 oxycodone Allergy ALGY-Rash Verified 07/12/24 10:46 Sulfa (Sulfonamide Allergy ALGY-Difficulty Verified 07/12/24 10:46 Antibiotics) Breathing Pertinent History/Comorbid Conditions* Medical History (Updated 07/12/24 @ 11:18 by Markell Ohara DO) Hematochezia Melena Acute bacterial sinusitis Right-sided heart failure Hepatomegaly Lumbar radiculopathy, chronic Muscle pain DDD (degenerative disc disease), lumbar Psoriatic arthritis Ventral incisional hernia PNA (pneumonia) Allergic reaction Abdominal wall hernia Cervical disc disease Cellulitis Diarrhea Abdominal pain Presence of surgical incision Immunization counseling High risk medication use Plaque psoriasis history? Inflammatory arthritis Encounter for other specified special examinations Joint pain Anxiety and depression Neuropathy Flu-like symptoms Upper respiratory infection Nausea Memory loss Umbilical hernia Constipation Hypertension screen Medication management Vitamin D deficiency Chronic joint pain Essential hypertension Rhus dermatitis GERD (gastroesophageal reflux disease) Surgical History (Updated 02/16/24 @ 08:55 by SARAH Simpson) Hx of hysterectomy kept ovaries History of esophagogastroduodenoscopy (EGD) Hx of colonoscopy 10 yrs ago Hx of tubal ligation Hx laparoscopic cholecystectomy Hx of exploratory laparotomy Hx of appendectomy Hx of hernia repair 11/02/23 Laparoscopic ventral incisional hernia repair with mesh, laparoscopic lysis of additions, laparoscopic guided transversus abdominis block- Dr Fernandez Status post cervical spinal fusion Social History Smoking and tobacco/nicotine status: current every day tobacco/nicotine user cigarettes Packs smoked per day: 0.5 Years cigarettes smoked: 30 Alcohol intake: current Alcohol intake frequency: holidays/special occasions only Substance/Drug Use: never Pertinent Exam Findings alert, oriented x 3, clear to auscultation bilaterally and regular rate & rhythm Recommendations Surgery/Procedure today Coding Level of Care Code Acute Code for Chg Fwdoug
[2024-08-04] MEDS: sodium chloride 0.9% 500 ML 15 ML IV (08:16)
--- NOTE | 2024-08-04 08:38 | P.ANESASSM_ITS ---
Pre-Anesthetic Assessment Height/Weight: Height 1.63 m Weight 104.326 kg Preop Diagnosis: abdominal pain and reflux Operation Date: 08/04/24 09:15 Proposed Procedures p Colonoscopy - 15044, G0105, 90603, K92.1, R10.9(Not Applicable) - Atul Fernandez MD s EGD(Not Applicable) - Atul Fernandez MD Was Clonidine taken within 24 hours: N/A Last intake: Intake Last Liquid Date 08/03/24 Last Liquid Time 20:00 Last Solid Date 08/02/24 Last Solid Time 18:00 Social Alcohol and Tobacco Exam alert, oriented x 3, clear to auscultation bilaterally and regular rate & rhythm Airway Submandibular: within normal limits Cervical ROM: within normal limits Mallampati: Class II Dentition: false History/ROS No significant history except as noted and No significant complaints Pulmonary Cough and Exertional Dyspnea CV/HEM Hypertension Chronic Renal Failure, Chronic Renal Insufficiency and Kidney Stones Hepatic None reported GI Gastroesophageal Reflux Disease Metabolic Diabetes Mellitus and Morbid Obesity Musc/skel Lower Back Pain and Weakness Neuropsych Anxiety Anesthetic Plan ASA status: 3 Anesthesia: Anesthesia Evaluation and MAC Risk of > 500 ml blood loss (7ml/kg in children): No Medications/Allergies Home Medications Medication Instructions Recorded Confirmed Last Taken Type polyethylene glycol 3350 17 4 g PO DAILY 30 days #238 grams 11/10/23 08/04/24 Unknown Rx gram/dose oral powder (Miralax) albuterol sulfate 90 mcg/actuation 2 inh inhalation Q4H PRN shortness 02/18/24 08/04/24 Unknown Rx aerosol inhaler of breath or wheezing #6.7 grams duloxetine 60 mg capsule,delayed 60 mg PO DAILY 90 days #90 caps 06/21/24 08/04/24 08/03/24 Rx release (Cymbalta) fluconazole 150 mg tablet 150 mg PO Q3D 2 doses #2 tabs 06/21/24 08/04/24 Unknown Rx duloxetine 30 mg capsule,delayed 30 mg PO DAILY 90 days #90 caps 06/29/24 08/04/24 08/03/24 Rx release (Cymbalta) hydrocodone 7.5 mg-acetaminophen 1 tab PO BID PRN pain 30 days #60 07/13/24 1 10/05/23 08/03/24 Rx 325 mg tablet tabs amlodipine 5 mg tablet 5 mg PO DAILY 08/02/24 08/04/24 08/03/24 History baclofen 10 mg tablet 10 mg PO DAILY 08/02/24 08/04/24 08/03/24 History lisinopril 20 mg tablet 20 mg PO BID 08/02/24 08/04/24 08/03/24 History omeprazole 40 mg capsule,delayed 40 mg PO DAILY 08/02/24 08/04/24 08/03/24 History release Allergies Allergy/AdvReac Type Severity Reaction Status Date / Time azithromycin [From Zithromax] Allergy Intermediate rash Verified 07/12/24 10:46 celecoxib [From Celebrex] Allergy Intermediate sick Verified 07/12/24 10:46 dicyclomine [From Bentyl] Allergy Intermediate rash Verified 07/12/24 10:46 2-octyl cyanoacrylate Allergy ALGY-Rash Verified 07/12/24 10:46 oxycodone Allergy ALGY-Rash Verified 07/12/24 10:46 Sulfa (Sulfonamide Allergy ALGY-Difficulty Verified 07/12/24 10:46 Antibiotics) Breathing Current Medications Generic Name Dose Route Start Last Admin Trade Name Freq PRN Reason Stop Dose Admin Sodium Chloride 500 mls @ 15 mls/hr 08/04/24 08:15 08/04/24 08:16 Sodium Chloride 0.9% IV 08/05/24 08:14 15 mls/hr .Q24H PRN Administration COLONOSCOPY FLUIDS PFSH Anesthesia Medical History Hematochezia Melena Acute bacterial sinusitis Right-sided heart failure Hepatomegaly Lumbar radiculopathy, chronic Muscle pain DDD (degenerative disc disease), lumbar Psoriatic arthritis Ventral incisional hernia PNA (pneumonia) Allergic reaction Abdominal wall hernia Cervical disc disease Cellulitis Diarrhea Abdominal pain Presence of surgical incision Immunization counseling High risk medication use Plaque psoriasis history? Inflammatory arthritis Encounter for other specified special examinations Joint pain Anxiety and depression Neuropathy Flu-like symptoms Upper respiratory infection Nausea Memory loss Umbilical hernia Constipation Hypertension screen Medication management Vitamin D deficiency Chronic joint pain Essential hypertension Rhus dermatitis GERD (gastroesophageal reflux disease) Surgical History Hx of hysterectomy kept ovaries History of esophagogastroduodenoscopy (EGD) Hx of colonoscopy 10 yrs ago Hx of tubal ligation Hx laparoscopic cholecystectomy Hx of exploratory laparotomy Hx of appendectomy Hx of hernia repair 11/02/23 Laparoscopic ventral incisional hernia repair with mesh, laparoscopic lysis of additions, laparoscopic guided transversus abdominis block- Dr Fenrandez Status post cervical spinal fusion Social History Smoking and tobacco/nicotine status: current every day tobacco/nicotine user cigarettes Packs smoked per day: 0.5 Years cigarettes smoked: 30 Alcohol intake: current Alcohol intake frequency: holidays/special occasions only Substance/Drug Use: never Data Anesthesia Cardiac Studies: Echocardiogram 06/07/24
[2024-08-04 09:48] VITALS: BP 124/85; PULSE 116; RESP 20; TEMP 36.4; O2SAT 93
[2024-08-04 09:54] VITALS: BP 122/84; PULSE 104; RESP 20; O2SAT 96
[2024-08-04 10:03] VITALS: BP 126/74; PULSE 97; RESP 20; O2SAT 97
--- NOTE | 2024-08-04 10:40 | ANE.PACU2 ---
Inpatient post-anesthesia follow up: Airway intact: Yes Vital signs: Temperature 97.6 F Pulse Rate 97 Respiratory Rate 20 Blood Pressure 126/74 Pulse Oximetry 97 Oxygen Delivery Me thod Room Air Oxygen Flow Rate Fraction of Inspir ed Oxygen Hydration adequate: Yes Nausea and vomiting: No Pain level: 1 Mental status: Baseline
[2024-08-04 11:10] LABS: C.Diff PCR (Lab) NEGATIVE (Negative)
== END 2024-08-04 10:40 | disposition home or self-care (01) ==
PROVIDERS: PCP Nurse Practitioner Family; Visit Provider Surgery
PROC: 0DJD8ZZ Inspection of Lower Intestinal Tract, Via Natural or Artificial Opening Endoscopic (ICD-10-PCS; CPT 45378; principal; 2024-08-04 09:15)
PROC: 0DJ08ZZ Inspection of Upper Intestinal Tract, Via Natural or Artificial Opening Endoscopic (ICD-10-PCS; CPT 43235; 2024-08-04 09:15)
DX: K92.1 Melena (principal); R10.9 Unspecified abdominal pain; D12.4 Benign neoplasm of descending colon; D12.8 Benign neoplasm of rectum; I10 Essential (primary) hypertension; K21.9 Gastro-esophageal reflux disease without esophagitis; F17.210 Nicotine dependence, cigarettes, uncomplicated
CPT/HCPCS: 45380; 45385; 82274; 83630; 87045; 87177; 87209; 87427; 87449; 87493; 88305; J2704; J7040

== ENCOUNTER → 2024-08-16 09:19 | Outpatient (BNVA) | payer MEDICARE, MEDICAID, SELFPAY | PROVIDERS: PCP Nurse Practitioner Family; Visit Provider Internal Medicine Rheumatology | DX: L40.50 Arthropathic psoriasis, unspecified (principal); Z79.899 Other long term (current) drug therapy; L40.0 Psoriasis vulgaris; Z71.85 Encounter for immunization safety counseling | CPT/HCPCS: 36415; 80076; 82565; 85025; 85651; 86140; 99214 ==

== ENCOUNTER → 2024-08-17 09:57 | Outpatient (BNVA) | payer MEDICARE, MEDICAID, SELFPAY | PROVIDERS: PCP Nurse Practitioner Family; Visit Provider Surgery | DX: Z09 Encounter for follow-up examination after completed treatment for conditions other than malignant neoplasm (principal) | CPT/HCPCS: 99214 ==

== ENCOUNTER 2024-09-01 10:18 | Outpatient (CLI) | payer MEDICARE, MEDICAID, SELFPAY ==
--- NOTE | 2024-09-01 11:00 | CT_ITS ---
WS: [id number] CT ABDOMEN AND PELVIS WITH CONTRAST HISTORY: spigelian hernia TECHNIQUE: Imaging performed of the abdomen and pelvis with IV contrast. Single phase imaging of the abdomen. Coronal and sagittal reformats are submitted. All CT scans at [facility] use at avi st one of these dose optimization techniques: automated exposure control; mA and/or kV adjustment per patient size (includes targeted exams where dose is matched to clinical indication); or iterative re construction. IV CONTRAST: Omnipaque 350; 100 mL IV. Oral contrast: Yes. DLP: 994.33 mGy.cm COMPARISON: 01/13/2024 Lower thorax: Lung bases are clear. Heart is normal size. No hiatal hernia. Liver/biliary system: Moderately enlarged liver with diffuse hepatic steatosis. Normal portal vein. Gallbladder: Status post cholecystectomy. Pancreas: Normal size pancreas and pancreatic duct. No adjacent inflammation. Spleen: Normal size spleen. No mass or infarct. Adrenal glands: Normal. Right kidney: Normal. Left kidney: Normal. Aorta: Normal. Lymphadenopathy: None. Free fluid: None. GI tract: Moderate constipation. A few distal colon diverticula without acute diverticulitis. Prior a ppendectomy. Abdominal wall: Postsurgical changes along the ventral midline abdominal wall. Mild diastases rectus. There is a tiny umbilical hernia containing fat. There is an additional LEFT lateral abdominal wall hernia. This is a spigelian hernia with an orifice of 4.0 cm. Intact aponeurosis of the external obli que muscle. Hernia has slightly increased in size since 01/13/2024. No additional hernia is identified . Pelvis: No free fluid or adenopathy within the pelvis. Prior hysterectomy. Bones: Unremarkable. CT/CT abdomen pelvis w con* [id number] IMPRESSION: 1. Slight increase in size of the LEFT spigelian hernia since 01/13/2024. Herni a contains fat only. Orifice of the hernia is 4.0 cm. 2. Postsurgical changes along the ventral abdominal wall. Very tiny umbilical hernia. 3. Prior cholecystectomy and hysterectomy. 4. Prior appendectomy. 5. Moderate hepatomegaly with diffuse hepatic steatosis.
[2024-09-01] MEDS: iohexol 350 mg/mL 500 mL Btl (per mL) PO (11:21)
[2024-09-01] MEDS: iohexol 350 mg/mL 500 mL Btl (per mL) IV (12:00)
== END 2024-09-01 10:19 | disposition home or self-care (01) ==
PROVIDERS: PCP Nurse Practitioner Family; Visit Provider Surgery
DX: K43.9 Ventral hernia without obstruction or gangrene (principal); R16.0 Hepatomegaly, not elsewhere classified; K76.0 Fatty (change of) liver, not elsewhere classified; K59.00 Constipation, unspecified; K57.30 Diverticulosis of large intestine without perforation or abscess without bleeding; Z90.49 Acquired absence of other specified parts of digestive tract; Z90.710 Acquired absence of both cervix and uterus; M62.08 Separation of muscle (nontraumatic), other site
CPT/HCPCS: 74177

== ENCOUNTER → 2024-09-12 09:15 | Outpatient (BNVA) | payer MEDICARE, MEDICAID, SELFPAY | PROVIDERS: PCP Nurse Practitioner Family; Visit Provider Anesthesiology Pain Medicine | DX: M48.062 Spinal stenosis, lumbar region with neurogenic claudication (principal); M54.50 Low back pain, unspecified; G89.29 Other chronic pain; M54.2 Cervicalgia; Z98.1 Arthrodesis status; M54.12 Radiculopathy, cervical region | CPT/HCPCS: 99214 ==

== ENCOUNTER → 2024-09-14 12:49 | Outpatient (BNVA) | payer MEDICARE, MEDICAID, SELFPAY | PROVIDERS: PCP Nurse Practitioner Family; Visit Provider Surgery | DX: Z09 Encounter for follow-up examination after completed treatment for conditions other than malignant neoplasm (principal) | CPT/HCPCS: 99213 ==

== ENCOUNTER → 2024-09-21 09:59 | Outpatient (BNVA) | payer MEDICARE, MEDICAID, SELFPAY | PROVIDERS: PCP Nurse Practitioner Family; Visit Provider Anesthesiology Pain Medicine | DX: M54.16 Radiculopathy, lumbar region (principal); M48.062 Spinal stenosis, lumbar region with neurogenic claudication | CPT/HCPCS: 64483; 64484; J1100; J3490 ==

== ENCOUNTER → 2024-10-11 09:23 | Outpatient (BNVA) | payer MEDICARE, MEDICAID, SELFPAY | PROVIDERS: PCP Nurse Practitioner Family; Visit Provider Orthopaedic Surgery | DX: M48.062 Spinal stenosis, lumbar region with neurogenic claudication (principal); M54.12 Radiculopathy, cervical region; M54.2 Cervicalgia; G89.29 Other chronic pain; Z98.1 Arthrodesis status | CPT/HCPCS: 99213; 99214 ==

== ENCOUNTER → 2024-10-27 08:54 | Outpatient (BNVA) | payer MEDICARE, MEDICAID, SELFPAY | PROVIDERS: PCP Nurse Practitioner Family; Visit Provider Nurse Practitioner Family | DX: I10 Essential (primary) hypertension (principal); E55.9 Vitamin D deficiency, unspecified; E89.41 Symptomatic postprocedural ovarian failure; Z79.899 Other long term (current) drug therapy | CPT/HCPCS: 80053; 80061; 81003; 82306; 83036; 83516; 84146; 84439; 84443; 84445; 84481; 85025; 86376 ==

== ENCOUNTER → 2024-11-01 14:40 | Outpatient (BNVA) | payer MEDICARE, MEDICAID, SELFPAY | PROVIDERS: PCP Nurse Practitioner Family; Visit Provider Anesthesiology Pain Medicine | DX: M54.16 Radiculopathy, lumbar region (principal); M48.062 Spinal stenosis, lumbar region with neurogenic claudication; F17.210 Nicotine dependence, cigarettes, uncomplicated | CPT/HCPCS: 62323; J1010 ==

== ENCOUNTER 2024-11-02 11:26 | Outpatient (CLI) | payer MEDICARE, MEDICAID, SELFPAY ==
--- NOTE | 2024-11-02 11:40 | MM_ITS ---
WS: [id number] BILATERAL 3D TOMOSYNTHESIS DIGITAL SCREENING MAMMOGRAPHY WITH CAD CLINICAL INFORMATION: Z12.31 - Encounter for screening mammogram for malignant ... HISTORY: Screening mammogram. No current complaints. COMPARISON: 2022 TECHNIQUE: Bilateral CC and MLO views. FINDINGS: Scattered fibroglandular densities bilaterally. No suspicious focal mass, asymmetry, calcifications, or architectural distortion. No evidence of malignancy. A few tiny incidental punctate calcifications. MM/MM [facility] tomosynthesis [id number] IMPRESSION: DENSITY: There are scattered areas of fibroglandular density. BI-RADS: 2 - Benign. FOLLOW UP: 1 Year Follow-up Recommend return to annual screening mammography.
== END 2024-11-02 11:27 | disposition home or self-care (01) ==
PROVIDERS: PCP Nurse Practitioner Family; Visit Provider Nurse Practitioner Family
DX: Z12.31 Encounter for screening mammogram for malignant neoplasm of breast (principal); R92.323 Mammographic fibroglandular density, bilateral breasts
CPT/HCPCS: 77063; 77067

== ENCOUNTER → 2024-11-21 10:59 | Outpatient (BNVA) | payer MEDICARE, MEDICAID, SELFPAY | PROVIDERS: PCP Nurse Practitioner Family; Visit Provider Anesthesiology Pain Medicine | DX: M48.062 Spinal stenosis, lumbar region with neurogenic claudication (principal); M54.50 Low back pain, unspecified; G89.29 Other chronic pain; M54.2 Cervicalgia; Z98.1 Arthrodesis status; M54.12 Radiculopathy, cervical region; F17.210 Nicotine dependence, cigarettes, uncomplicated | CPT/HCPCS: 99214 ==

== ENCOUNTER → 2024-11-22 07:54 | Outpatient (BNVA) | payer MEDICARE, MEDICAID, SELFPAY | PROVIDERS: PCP Nurse Practitioner Family; Visit Provider Orthopaedic Surgery | DX: M48.062 Spinal stenosis, lumbar region with neurogenic claudication (principal) | CPT/HCPCS: 99214 ==

== ENCOUNTER 2024-12-08 12:16 | Outpatient (CLI) | payer OTHER, MEDICAID, SELFPAY ==
[2024-12-08 13:05] LABS: Bacteria Urine Trace /hpf; Hyaline Casts Urine 0-4 /lpf; RBC Urine 0-2 /hpf (0-2)
[2024-12-08 13:15] LABS: Add Urine Culture? No; Add Urine Microscopic? YES; Bilirubin Urine Neg (Negative); Blood Urine Neg (Negative); Glucose Urine UA Norm (Normal); Ketones Urine Negative (Negative); Leukocyte Esterase Urine Trace (Negative); Nitrate Urine Negative (Negative); Protein Urine Neg (Negative); Urine Appearance Clear (CLEAR); Urine Color Yellow (Yellow); Urobilinogen Urine Norm (Negative); pH Urine 5 (5-7)
[2024-12-08 13:17] LABS: Alanine Aminotransferase 47 U/L (0-33); Albumin Level 4.3 g/dL (3.5-5.2); Alkaline Phosphatase 125 U/L (35-105); Aspartate Amino Transferase 30 U/L (0-32); Blood Urea Nitrogen 16 mg/dL (6-20); Calcium 9.4 mg/dL (8.5-10.5); Carbon Dioxide 26 mmol/L (22-29); Chloride 102 mmol/L (98-107); Globulin 3.2 g/dL (1.3-4.6); Glomerular Filtration Rate 108.1 mL/min (90-130); Glucose 128 mg/dL (65-115); Osmolality Calculated 291 mOsm/kg (285-295); Sodium 139 mmol/L (136-145); Total Bilirubin 0.2 mg/dL (0.15-1.2); Total Protein 7.5 g/dL (6.6-8.7)
[2024-12-08 13:24] LABS: Anion Gap 15.5 (5-19); Potassium 4.5 mmol/L (3.5-5.1)
[2024-12-08 13:29] LABS: Estmated Average Glucose 217; Hemoglobin A1C 9.2 % (4.0-6.0)
== END 2024-12-08 12:17 | disposition home or self-care (01) ==
LOC: LAB 12:21
PROVIDERS: PCP Nurse Practitioner Family; Visit Provider Orthopaedic Surgery
DX: L40.0 Psoriasis vulgaris (principal); Z79.899 Other long term (current) drug therapy; Z71.85 Encounter for immunization safety counseling; L40.50 Arthropathic psoriasis, unspecified
CPT/HCPCS: 80053; 81001; 83036; 99214

== ENCOUNTER → 2024-12-21 07:46 | Outpatient (BNVA) | payer MEDICARE, MEDICAID, SELFPAY | PROVIDERS: PCP Nurse Practitioner Family; Visit Provider Family Medicine | DX: Z01.818 Encounter for other preprocedural examination (principal); Z79.899 Other long term (current) drug therapy | CPT/HCPCS: 80053; 81003; 83036; 85025; 93005 ==

== ENCOUNTER 2024-12-30 06:44 | Day surgery (SDC) | payer MEDICARE, MEDICAID, SELFPAY ==
[2024-12-30] VITALS (16 sets, daily range): BP systolic 115–152; BP diastolic 65–86; PULSE 94–114; RESP 10–20; TEMP 36.1–36.3; O2SAT 92–99; BMI 39.4
--- NOTE | 2024-12-30 07:19 | ANES.PREANE2 ---
Pre-Anesthetic Assessment Height/Weight: Height 5 ft 4 in Weight 230 lb Temp Pulse Resp BP Pulse Ox O2 Del Method 97.0 F L 94 18 127/77 96 Room Air 12/30/24 07:10 12/30/24 07:10 12/30/24 07:10 12/30/24 07:10 12/30/24 07:10 12/30/24 07:10 Preop Diagnosis: Lumbar stenosis with neurogenic claudication Operation Date: 12/30/24 08:20 Proposed Procedures p Lumbar Spine Decompression Lumbar Decompression(Not Applicable) - Markell Ohara, DO Was Beta Aureliano taken within 24 hours: N/A Was Clonidine taken within 24 hours: N/A Social Tobacco and No alcohol Exam alert, oriented x 3, clear to auscultation bilaterally and regular rate & rhythm Airway Submandibular: within normal limits Cervical ROM: within normal limits Mallampati: Class III Comments: Comments: Edentulous Anesthetic Plan ASA status: 3 Anesthesia: General Other: No prior issues with anesthesia NPO since yesterday evening History of hypertension on amlodipine and lisinopril Current smoker Type 2 diabetes BMI 39.5 Labs 12/21/2024 reviewed acceptable for procedure. NA 135 at that time EKG showing sinus rhythm Echo showing EF of 60% Plan for GETA Medications/Allergies Home Medications ?Medication ?Instructions ?Recorded ?Confirmed ?Last Taken ?Type albuterol sulfate 90 mcg/actuation 2 inh inhalation Q4H PRN shortness 02/18/24 12/29/24 Unknown Rx aerosol inhaler of breath or wheezing #6.7 grams baclofen 10 mg tablet 10 mg PO DAILY 08/02/24 12/29/24 12/29/24 History blood-glucose meter #1 ea 11/02/24 12/12/24 Unknown Rx blood-glucose sensor (FreeStyle #1 ea 11/16/24 12/12/24 Unknown Rx Bernice 3 Sensor device) polyethylene glycol 3350 17 gram 17 g PO DAILY 30 days #30 ea 11/16/24 12/29/24 12/29/24 Rx oral powder packet (Miralax) amlodipine 5 mg tablet 5 mg PO DAILY #30 tabs 12/06/24 12/29/24 12/29/24 Rx adalimumab 40 mg/0.8 mL 40 mg (0.8 mL) SUBCUT .Q7days #4 ea 12/08/24 12/29/24 12/16/24 Rx subcutaneous pen kit (Humira Pen) alcohol swabs 1 pad topical DIRECTED #200 ea 12/12/24 12/29/24 Unknown Rx blood sugar diagnostic (Blood #200 ea 12/12/24 12/12/24 Unknown Rx Glucose Test strips) lancets #200 ea 12/12/24 12/12/24 Unknown Rx tirzepatide 5 mg/0.5 mL 5 mg (0.5 mL) SUBCUT .weekly 30 12/12/24 12/29/24 12/14/24 Rx subcutaneous pen injector days #2 mL (Mounjaro) hydrocodone 7.5 mg-acetaminophen 1 tab PO BID PRN pain 30 days #60 12/13/24 12/29/24 12/29/24 Rx 325 mg tablet tabs duloxetine 30 mg capsule,delayed 30 mg PO DAILY 12/15/24 12/29/24 12/29/24 History release lisinopril 20 mg tablet 20 mg PO BID 12/15/24 12/29/24 12/29/24 History prednisone 20 mg tablet 40 mg PO DAILY PRN joint pain flare 12/15/24 12/29/24 Unknown History duloxetine 60 mg capsule,delayed See Rx Instructions .Route 12/28/24 12/29/24 Rx release .COMPLEX #90 caps omeprazole 40 mg capsule,delayed 40 mg PO DAILY 12/29/24 12/29/24 12/29/24 History release pregabalin 150 mg capsule (Lyrica) 150 mg PO BID 12/29/24 12/29/24 12/29/24 History Allergies Allergy/AdvReac Type Severity Reaction Status Date / Time azithromycin (From Zithromax) Allergy Intermediate rash Verified 12/29/24 11:53 celecoxib (From Celebrex) Allergy Intermediate sick Verified 12/29/24 11:53 dicyclomine (From Bentyl) Allergy Intermediate rash Verified 12/29/24 11:53 2-octyl cyanoacrylate Allergy ALGY-Rash Verified 12/29/24 11:53 adhesive Allergy ALGY-Bliste Verified 12/29/24 11:53 r oxycodone Allergy ALGY-Rash Verified 12/29/24 11:53 Sulfa (Sulfonamide Allergy ALGY-Difficulty Verified 12/29/24 11:53 Antibiotics) Breathing [facility] Anesthesia Medical History Constipation Yeast vaginitis New onset type 2 diabetes mellitus Sweating abnormality Breast cancer screening by mammogram Headache Hematochezia Melena Acute bacterial sinusitis Right-sided heart failure Hepatomegaly Lumbar radiculopathy, chronic Muscle pain DDD (degenerative disc disease), lumbar Psoriatic arthritis Ventral incisional hernia PNA (pneumonia) Allergic reaction Abdominal wall hernia Cervical disc disease Cellulitis Diarrhea Abdominal pain Presence of surgical incision Immunization counseling High risk medication use Plaque psoriasis history? Inflammatory arthritis Encounter for other specified special examinations Joint pain Anxiety and depression Neuropathy Flu-like symptoms Upper respiratory infection Nausea Memory loss Umbilical hernia Hypertension screen Medication management Vitamin D deficiency Chronic joint pain Essential hypertension Rhus dermatitis GERD (gastroesophageal reflux disease) Surgical History Hx of hysterectomy kept ovaries History of esophagogastroduodenoscopy (EGD) Hx of colonoscopy 10 yrs ago Hx of tubal ligation Hx laparoscopic cholecystectomy Hx of exploratory laparotomy Hx of appendectomy Hx of hernia repair 11/02/23 Laparoscopic ventral incisional hernia repair with mesh, laparoscopic lysis of additions, laparoscopic guided transversus abdominis block- Dr Fernandez Status post cervical spinal fusion Social History Smoking and tobacco/nicotine status: current every day tobacco/nicotine user cigarettes Packs smoked per day: 0.5 Years cigarettes smoked: 30 Alcohol intake: current Alcohol intake frequency: holidays/special occasions only Substance/Drug Use: never Data Anesthesia Cardiac Studies: Echocardiogram 06/07/24
[2024-12-30] MEDS: sodium chloride 0.9% 1,000 ML 30 ML IV (07:33)
[2024-12-30 07:35] LABS: Glucose Point of Care 204 mg/dL (70-110)
--- NOTE | 2024-12-30 08:29 | W.PM.OPSFHP ---
Same Day Surgery H&P Indication for Procedure/HPI DATE OF PROCEDURE: December 30, 2024 CHIEF COMPLAINT/INDICATIONFOR SURGICAL PROCEDURE: Back pain and leg pain PREOP DIAGNOSIS: Lumbar stenosis with neurogenic claudication PLANNED PROCEDURE: Operation Date: 12/30/24 08:20 Proposed Procedures p Lumbar Spine Decompression Lumbar Decompression(Not Applicable) - Markell Ohara, DO Medications/Allergies* Home Medications ?Medication ?Instructions ?Recorded ?Confirmed ?Type baclofen 10 mg tablet 10 mg PO DAILY 08/02/24 12/29/24 History duloxetine 30 mg capsule,delayed 30 mg PO DAILY 12/15/24 12/29/24 History release lisinopril 20 mg tablet 20 mg PO BID 12/15/24 12/29/24 History prednisone 20 mg tablet 40 mg PO DAILY PRN joint pain flare 12/15/24 12/29/24 History omeprazole 40 mg capsule,delayed 40 mg PO DAILY 12/29/24 12/29/24 History release pregabalin 150 mg capsule (Lyrica) 150 mg PO BID 12/29/24 12/29/24 History Allergies/Adverse Reactions Allergy/AdvReac Type Severity Reaction Status Date / Time azithromycin (From Zithromax) Allergy Intermediate rash Verified 12/29/24 11:53 celecoxib (From Celebrex) Allergy Intermediate sick Verified 12/29/24 11:53 dicyclomine (From Bentyl) Allergy Intermediate rash Verified 12/29/24 11:53 2-octyl cyanoacrylate Allergy ALGY-Rash Verified 12/29/24 11:53 adhesive Allergy ALGY-Bliste Verified 12/29/24 11:53 r oxycodone Allergy ALGY-Rash Verified 12/29/24 11:53 Sulfa (Sulfonamide Allergy ALGY-Difficulty Verified 12/29/24 11:53 Antibiotics) Breathing Current Medications: Generic Name Dose Route Start Last Admin Trade Name Freq PRN Reason Stop Dose Admin Sodium Chloride 1,000 mls @ 30 mls/hr 12/30/24 07:00 12/30/24 07:33 Sodium Chloride 0.9% IV 12/31/24 06:59 30 mls/hr .Q24H JUSTEN Administration Pertinent History/Comorbid Conditions* Medical History (Updated 11/20/24 @ 19:57 by SARAH Flores) Constipation Yeast vaginitis New onset type 2 diabetes mellitus Sweating abnormality Breast cancer screening by mammogram Headache Hematochezia Melena Acute bacterial sinusitis Right-sided heart failure Hepatomegaly Lumbar radiculopathy, chronic Muscle pain DDD (degenerative disc disease), lumbar Psoriatic arthritis Ventral incisional hernia PNA (pneumonia) Allergic reaction Abdominal wall hernia Cervical disc disease Cellulitis Diarrhea Abdominal pain Presence of surgical incision Immunization counseling High risk medication use Plaque psoriasis history? Inflammatory arthritis Encounter for other specified special examinations Joint pain Anxiety and depression Neuropathy Flu-like symptoms Upper respiratory infection Nausea Memory loss Umbilical hernia Hypertension screen Medication management Vitamin D deficiency Chronic joint pain Essential hypertension Rhus dermatitis GERD (gastroesophageal reflux disease) Surgical History (Updated 02/16/24 @ 08:55 by SARAH Simpson) Hx of hysterectomy kept ovaries History of esophagogastroduodenoscopy (EGD) Hx of colonoscopy 10 yrs ago Hx of tubal ligation Hx laparoscopic cholecystectomy Hx of exploratory laparotomy Hx of appendectomy Hx of hernia repair 11/02/23 Laparoscopic ventral incisional hernia repair with mesh, laparoscopic lysis of additions, laparoscopic guided transversus abdominis block- Dr Fernandez Status post cervical spinal fusion Social History Smoking and tobacco/nicotine status: current every day tobacco/nicotine user cigarettes Packs smoked per day: 0.5 Years cigarettes smoked: 30 Alcohol intake: current Alcohol intake frequency: holidays/special occasions only Substance/Drug Use: never Pertinent Exam Findings alert, oriented x 3 and procedure specific exam findings Recommendations Risks and benefits of procedure reviewed Surgery/Procedure today Coding Level of Care Code Acute Code for Chg Manny
[2024-12-30] MEDS: ceFAZolin 2,000 mg SDV 2000 MG IVP (08:43)
[2024-12-30] MEDS: lidocaine-epi 1% PF 1:200,000 30 mL SDV INJECTION (09:05)
--- NOTE | 2024-12-30 09:37 | PM.OP ---
Operative Report Date of procedure: December 30, 2024 Pre-op diagnosis: Lumbar stenosis neurogenic claudication Post-op diagnosis: same Procedure done: L4-5 laminectomy with partial facetectomy Surgeon: Markell Ohara DO Estimated blood loss (mL): 5 Procedure: L4-5 laminectomy with partial facetectomy Patient is brought to the operative suite. After undergoing anesthesia they are placed in the prone position. All areas of impingement are well padded. Patient is then prepped and draped in the normal sterile fashion. A skin incision is made over the L4/5 level. This is confirmed under c-arm guidance. A series of dilators are passed and the tubular retractor is docked on the L4 lamina. A bovie is used to clear the soft tissue off the lamina and the L 4/5 facet joint. A high speed cricket is then used to perform the laminectomy and take down the medial aspect of the L 4/5 facet joint. A kerrison rongeure was then used to take down the remaining lamina and smooth the edge of the laminectomy up to the point where the ligamentum flavum attaches. Attention was then brought to the medial aspect of the facet joint. The remaining medial aspect of the superior and inferior aspect of the facet joint were taken down with the kerrison from the pedicle of L4 to L 5. The facet joint had significant hypertrophy. Attention was then brought to the Ligamentum Flavum. The ligament was taken down from the lamina of L4 to L5 and out medially to the remaining facet joint. The ligament was thick. The dura was then exposed. The dura was in good repair. The L4 nerve was then traced with a curette out the L4/5 foramen and found to be adequately decompressed. The L5 nerve was traced with a curette around the L5 pedicle. The lateral recess was opened with a kerrison helping to further decompress the L5 nerve. Wound is then irrigated copiously with saline and surgiflo is used to stop any bleeding. The tubular retractor is removed and the wound is closed with vicryl and monocryl suture. Glue is then used to protect the wound. A sterile dressing is then placed. Patient was then placed in the supine position and transferred to the PACU in stable condition.
--- NOTE | 2024-12-30 09:51 | PC.NURSE ---
Pt resting quitely. Responds when spoken too. encouraged to take good deep breaths.
[2024-12-30] MEDS: fentaNYL 50 mcg/mL INJ 2mL IVP ×2 (10:02→10:21)
--- NOTE | 2024-12-30 10:05 | XR_ITS ---
WS: [id number] Lumbar spine, C-arm fluoroscopy views, 12/30/2024 Clinical Data: or pic, decompression Comparison: Lumbar spine, 07/12/2024 Findings: Dr. Ohara performed a lumbar decompression. XR/XR lumbar spine 1V [id number] Impression: Lumbar decompression.
--- NOTE | 2024-12-30 10:48 | ANE.PACU2 ---
Inpatient post-anesthesia follow up: Airway intact: Yes Vital signs: Temperature 97.0 F Pulse Rate 110 Respiratory Rate 18 Blood Pressure 132/65 Pulse Oximetry 93 Oxygen Delivery Me thod Room Air Oxygen Flow Rate 2 Fraction of Inspir ed Oxygen Hydration adequate: Yes Nausea and vomiting: No Pain level: 1 Mental status: Baseline
[2024-12-30] MEDS: HYDROcodone-acetaminophen 10-325 mg Tablet 1 TAB PO (10:57)
== END 2024-12-30 11:32 | disposition home or self-care (01) ==
PROVIDERS: PCP Nurse Practitioner Family; Visit Provider Orthopaedic Surgery
PROC: (CPT 63005; principal; 2024-12-30 08:10)
DX: M48.062 Spinal stenosis, lumbar region with neurogenic claudication (principal); I10 Essential (primary) hypertension; E11.9 Type 2 diabetes mellitus without complications; Z79.899 Other long term (current) drug therapy; Z79.85 Long-term (current) use of injectable non-insulin antidiabetic drugs; Z88.5 Allergy status to narcotic agent; Z88.2 Allergy status to sulfonamides; Z88.8 Allergy status to other drugs, medicaments and biological substances; Z91.09 Other allergy status, other than to drugs and biological substances; F17.210 Nicotine dependence, cigarettes, uncomplicated
CPT/HCPCS: 63047; 36416; 72020; 76000; 82962; J0330; J0690; J1100; J1885; J2250; J2405; J2704; J3010; J3490; J7030; J9999

== ENCOUNTER → 2025-01-10 12:26 | Outpatient (BNVA) | payer MEDICARE, MEDICAID, SELFPAY | PROVIDERS: PCP Nurse Practitioner Family; Visit Provider Orthopaedic Surgery | DX: Z98.890 Other specified postprocedural states (principal) | CPT/HCPCS: 99024 ==

== ENCOUNTER → 2025-02-07 08:00 | Outpatient (BNVA) | payer MEDICARE, MEDICAID, SELFPAY | PROVIDERS: PCP Nurse Practitioner Family; Visit Provider Orthopaedic Surgery | DX: Z98.890 Other specified postprocedural states (principal) | CPT/HCPCS: 99024 ==

== ENCOUNTER → 2025-03-21 08:06 | Outpatient (BNVA) | payer MEDICARE, MEDICAID, SELFPAY | PROVIDERS: PCP Nurse Practitioner Family; Visit Provider Orthopaedic Surgery | DX: Z98.890 Other specified postprocedural states (principal) | CPT/HCPCS: 99024 ==

== ENCOUNTER → 2025-03-22 09:16 | Outpatient (BNVA) | payer MEDICARE, MEDICAID, SELFPAY | PROVIDERS: PCP Nurse Practitioner Family; Visit Provider Nurse Practitioner Family | DX: I10 Essential (primary) hypertension (principal); E11.9 Type 2 diabetes mellitus without complications; E66.9 Obesity, unspecified; E78.2 Mixed hyperlipidemia | CPT/HCPCS: 80053; 80061; 81003; 83036; 85025 ==

== ENCOUNTER → 2025-04-06 10:37 | Outpatient (BNVA) | payer MEDICARE, MEDICAID, SELFPAY | PROVIDERS: PCP Nurse Practitioner Family; Visit Provider Internal Medicine Rheumatology | DX: L40.0 Psoriasis vulgaris (principal); Z79.899 Other long term (current) drug therapy; Z71.85 Encounter for immunization safety counseling; L40.50 Arthropathic psoriasis, unspecified; M06.00 Rheumatoid arthritis without rheumatoid factor, unspecified site; M19.90 Unspecified osteoarthritis, unspecified site | CPT/HCPCS: 99214 ==

== ENCOUNTER → 2025-07-06 08:36 | Outpatient (BNVA) | payer MEDICARE, MEDICAID, SELFPAY | PROVIDERS: PCP Nurse Practitioner Family; Visit Provider Nurse Practitioner Family | DX: E55.9 Vitamin D deficiency, unspecified (principal); E11.9 Type 2 diabetes mellitus without complications; F41.8 Other specified anxiety disorders; I10 Essential (primary) hypertension; E78.2 Mixed hyperlipidemia | CPT/HCPCS: 80053; 80061; 81000; 82306; 82607; 82746; 83036; 85025 ==

== ENCOUNTER → 2025-08-02 09:17 | Outpatient (BNVA) | payer MEDICARE, MEDICAID, SELFPAY | PROVIDERS: PCP Nurse Practitioner Family; Visit Provider Internal Medicine Rheumatology | DX: M06.00 Rheumatoid arthritis without rheumatoid factor, unspecified site (principal); Z79.899 Other long term (current) drug therapy; M19.90 Unspecified osteoarthritis, unspecified site | CPT/HCPCS: 80076; 82565; 85025; 85651; 86140 ==

== ENCOUNTER → 2025-08-07 08:49 | Outpatient (BNVA) | payer MEDICARE, MEDICAID, SELFPAY | PROVIDERS: PCP Nurse Practitioner Family; Visit Provider Internal Medicine Rheumatology | DX: L40.50 Arthropathic psoriasis, unspecified (principal); L40.0 Psoriasis vulgaris; M06.00 Rheumatoid arthritis without rheumatoid factor, unspecified site; Z79.899 Other long term (current) drug therapy; Z71.85 Encounter for immunization safety counseling; E11.9 Type 2 diabetes mellitus without complications | CPT/HCPCS: 99214 ==

== ENCOUNTER → 2025-08-08 10:30 | Outpatient (BNVA) | payer MEDICARE, MEDICAID, SELFPAY | PROVIDERS: PCP Nurse Practitioner Family; Visit Provider Surgery | DX: K43.9 Ventral hernia without obstruction or gangrene (principal) | CPT/HCPCS: 99212 ==